=== PATIENT | male | born 1950 | race Caucasian/White ===

== ENCOUNTER → 2018-09-07 | Outpatient (CLI) | payer MEDICARE ==
--- NOTE | 2018-09-07 18:02 | US ---
EXAMINATION TYPE: US venous doppler duplex LE LT DATE OF EXAM: 09/07/2018 5:29 PM COMPARISON: NONE CLINICAL HISTORY: M25.562 PAIN IN LT KNEE,I10 HTN. Pain and swelling in left knee, redness, no injury , no h/o dvt SIDE PERFORMED: left TECHNIQUE: The lower extremity deep venous system is examined utilizing real time linear array sonog valorie with graded compression, doppler sonography and color-flow sonography. VESSELS IMAGED: External Iliac Vein (EIV) Common Femoral Vein Deep Femoral Vein Greater Saphenous Vein * Femoral Vein Popliteal Vein Small Saphenous Vein * Proximal Calf Veins (* superficial vessels) Left Leg: Appears negative for DVT 3.0cm cystic cluster seen just medial to popiteal vessels and does not have typical Weston Cyst appe arance, unknown etiology office closed for tech impression and no additional contact number given on order. IMPRESSION: No evidence of deep venous thrombosis. Complex septated popliteal cyst noted.
== END | disposition home or self-care (01) ==
LOC: RADUSWWP 17:05
PROVIDERS: ATTEND Orthopaedic Surgery
DX: M85.662 Other cyst of bone, left lower leg (principal); E78.5 Hyperlipidemia, unspecified; I80.9 Phlebitis and thrombophlebitis of unspecified site

== ENCOUNTER 2018-09-10 13:12 | Emergency (ER) | payer MEDICARE, OTHER ==
--- NOTE | 2018-09-10 14:57 | ED ---
Extremity Problem HPI - General Chief complaint: Extremity Problem,Nontraumatic Stated complaint: Infection in Knee Time Seen by Provider: 09/10/18 14:28 Source: patient Mode of arrival: ambulatory Limitations: no limitations - History of Present Illness Initial comments: Patient is a 68-year-old male presenting to emergency Department with right knee erythema and swelling. Patient reports 3 days ago he developed erythema and swelling on the left knee and lower leg edema so he was examined by Dr. Chaudhari who placed him on a 10 day course of Keflex which has showed improvement. Patient reports left knee has improved but now the right knee has developed the same symptoms. Patient reports mild tenderness at rest that is is exacerbated with palpation or ambulation. Patient denies bilateral calf tenderness Or skin discoloration. Patient denies shortness of breath and chest tightness or chest pain. Patient denies fever, nausea, vomiting, headache, lightheadedness, dizziness or gait instability. Patient denies urgency frequency or dysuria. - Related Data Home Medications Medication Instructions Recorded Confirmed Allopurinol [Zyloprim] 100 mg PO DAILY 12/24/14 09/10/18 Furosemide [Lasix] 20 mg PO DAILY 12/24/14 09/10/18 Metoprolol Succinate [Toprol XL] 200 mg PO DAILY 12/24/14 09/10/18 Cephalexin [Keflex] 500 mg PO Q6HR 09/10/18 09/10/18 Allergies Allergy/AdvReac Type Severity Reaction Status Date / Time No Known Allergies Allergy Verified 09/10/18 14:40 Review of Systems ROS Statement: Those systems with pertinent positive or pertinent negative responses have been documented in the HPI. ROS Other: All systems not noted in ROS Statement are negative. Past Medical History Past Medical History: Chest Pain / Angina, Hypertension History of Any Multi-Drug Resistant Organisms: None Reported Past Surgical History: No Surgical Hx Reported Past Psychological History: No Psychological Hx Reported Smoking Status: Current every day smoker Past Alcohol Use History: Occasional Past Drug Use History: None Reported General Exam Limitations: no limitations General appearance: alert, in no apparent distress Head exam: Present: atraumatic, normocephalic Eye exam: Present: normal appearance, PERRL, EOMI Pupils: Present: normal accommodation Neck exam: Present: normal inspection Respiratory exam: Present: normal lung sounds bilaterally Cardiovascular Exam: Present: regular rate, normal rhythm, normal heart sounds GI/Abdominal exam: Present: soft. Absent: distended, tenderness, guarding, rebound Left Upper Leg exam: Present: normal inspection, full ROM Knee exam: Present: full ROM. Absent: tenderness, abrasion, laceration, ecchymosis, deformity Lower Leg exam: Present: swelling. Absent: erythema, Homans' sign Ankle exam: Present: normal inspection, full ROM Foot/Toe exam: Present: normal inspection, full ROM Neurovascular tendon exam: Present: no vascular compromise (+2 dorsalis pedis a nd posterior tibialis) Gait: observed and limited by pain Right Upper Leg exam: Present: normal inspection, full ROM Knee exam: Present: tenderness (Mild), swelling (Mild), erythema. Absent: full ROM (Limited due to pain), laceration Course Vital Signs 09/10/18 09/10/18 13:43 15:06 Temperature 98.1 F 98 F Pulse Rate 49 L 58 L Respiratory 16 18 Rate Blood Pressure 157/86 167/84 O2 Sat by Pulse 98 98 Oximetry Medical Decision Making - Medical Decision Making Patient is 68-year-old male presenting to emergency Department for right leg swelling and erythema. ESR, lactic acid, CBC, CMP are unremarkable. Patient will be discharged and advised to follow-up with orthopedics. X-ray of the righ t knee is not showing any acute fracture or dislocations but it shows increased sclerotic lesion involving distal diaphysis of the right femur with possible past several reaction. Patient advised to obtain an MRI. Patient advised to keep the leg elevated and alternate between Tylenol and ibuprofen for pain control. Patient advised to keep an icepack to minimize swelling. Patient advised to return to emergency department if symptoms worsen. Case discussed with physician. - Lab Data Result diagrams: 09/10/18 15:15 09/10/18 15:15 Lab Results 09/10/18 09/10/18 09/10/18 Range/Units 15:15 15:15 15:15 WBC 10.2 (3.8-10.6) k/uL RBC 4.43 (4.30-5.90) m/uL Hgb 14.8 (13.0-17.5) gm/dL Hct 43.3 (39.0-53.0) % MCV 97.9 (80.0-100.0) fL MCH 33.5 (25.0-35.0) pg MCHC 34.2 (31.0-37.0) g/dL RDW 14.1 (11.5-15.5) % Plt Count 210 (150-450) k/uL Neutrophils % 66 % Lymphocytes % 22 % Monocytes % 7 % Eosinophils % 2 % Basophils % 0 % Neutrophils # 6.7 (1.3-7.7) k/uL Lymphocytes # 2.3 (1.0-4.8) k/uL Monocytes # 0.7 (0-1.0) k/uL Eosinophils # 0.2 (0-0.7) k/uL Basophils # 0.0 (0-0.2) k/uL ESR 8 (0-15) mm/hr Sodium 140 (137-145) mmol/L Potassium 4.5 (3.5-5.1) mmol/L Chloride 103 (98-107) mmol/L Carbon Dioxide 28 (22-30) mmol/L Anion Gap 9 mmol/L BUN 10 (9-20) mg/dL Creatinine 0.64 L (0.66-1.25) mg/dL Est GFR (CKD-EPI)AfAm >90 (>60 ml/min/1.73 sqM) Est GFR (CKD-EPI)NonAf >90 (>60 ml/min/1.73 sqM) Glucose 93 (74-99) mg/dL Plasma Lactic Acid Manuel 1.3 (0.7-2.0) mmol/L Calcium 9.8 (8.4-10.2) mg/dL Total Bilirubin 0.8 (0.2-1.3) mg/dL AST 27 (17-59) U/L ALT 19 L (21-72) U/L Alkaline Phosphatase 70 (38-126) U/L Total Protein 7.3 (6.3-8.2) g/dL Albumin 4.5 (3.5-5.0) g/dL Disposition Clinical Impression: Knee pain, right Disposition: HOME SELF-CARE Condition: Stable Instructions (If sedation given, give patient instructions): Knee Pain (ED) Additional Instructions: Please follow with orthopedics. Keep leg elevated, alternate between Tylenol and ibuprofen for pain control, and use ice packs to minimize swelling. Please return to emergency department if symptoms worsen. Is patient prescribed a controlled substance at d/c from ED?: No Referrals: [facility],Clinic [Primary Care Provider] - 1-2 days Time of Disposition: 16:53
--- NOTE | 2018-09-10 15:05 | XR ---
EXAMINATION TYPE: XR knee complete RT DATE OF EXAM: 09/10/2018 COMPARISON: NONE HISTORY: Pain TECHNIQUE: Four views are submitted. FINDINGS: Mild narrowing the medial compartment knee joint. There is vascular calcification. There is to be a s clerotic lesion involving the distal diaphysis of the right femur.. Osseous structures are intact. No acute fracture seen. IMPRESSION: 1. No acute fracture or dislocation. There is increased sclerotic lesion involving the distal diaphy sis of the right femur with possible periosteal reaction. Recommend MRI of the right knee. 2. Arthropathy.
[2018-09-10 15:09] VITALS: BP 167/84
[2018-09-10 15:36] LABS: ALT 19 U/L (21-72); AST 27 U/L (17-59); Albumin 4.5 g/dL (3.5-5.0); Alkaline Phosphatase 70 U/L (38-126); Anion Gap 9 mmol/L; Blood Urea Nitrogen 10 mg/dL (9-20); Calcium 9.8 mg/dL (8.4-10.2); Carbon Dioxide 28 mmol/L (22-30); Chloride 103 mmol/L (98-107); Glucose 93 mg/dL (74-99); Potassium 4.5 mmol/L (3.5-5.1); Sodium 140 mmol/L (137-145); Total Bilirubin 0.8 mg/dL (0.2-1.3); Total Protein 7.3 g/dL (6.3-8.2)
[2018-09-10 15:37] LABS: Basophils % (A) 0 %; Eosinophils # (A) 0.2 k/uL (0-0.7); Eosinophils % (A) 2 %; HCT 43.3 % (39.0-53.0); HGB 14.8 gm/dL (13.0-17.5); Lymphocytes # (A) 2.3 k/uL (1.0-4.8); Lymphocytes % (A) 22 %; MCH 33.5 pg (25.0-35.0); MCHC 34.2 g/dL (31.0-37.0); MCV 97.9 fL (80.0-100.0); Mean Platelet Volume 7.7; Monocytes # (A) 0.7 k/uL (0-1.0); Monocytes % (A) 7 %; Neutrophils # (A) 6.7 k/uL (1.3-7.7); Neutrophils % (A) 66 %; Platelet Count 210 k/uL (150-450); RBC 4.43 m/uL (4.30-5.90); RDW 14.1 % (11.5-15.5); WBC 10.2 k/uL (3.8-10.6)
[2018-09-10] MEDS ORDERED: IBUPROFEN 600 MG TAB PO STA (15:57)
[2018-09-10 16:38] LABS: Erythrocyte Sedimentation Rate 8 mm/hr (0-15)
[2018-09-10 16:59] VITALS: PULSE 78; RESP 16; TEMP 98.7
== END 2018-09-10 17:01 | disposition home or self-care (01) ==
LOC: EC 13:12
DX: M25.561 Pain in right knee (principal); M89.9 Disorder of bone, unspecified; I10 Essential (primary) hypertension; F17.200 Nicotine dependence, unspecified, uncomplicated; Z79.899 Other long term (current) drug therapy
CPT/HCPCS: 36415; 80053; 83605; 85025; 85652; 99283

== ENCOUNTER 2019-12-30 15:57 | Emergency (ER) | payer MEDICARE, OTHER ==
[2019-12-30 16:08] VITALS: TEMP 98.2
[2019-12-30] MEDS ORDERED: METOPROLOL SUCCINATE (ER) 100 MG TAB.ER.24H PO STA (16:58)
--- NOTE | 2019-12-30 17:30 | ED ---
General Adult HPI - General Chief complaint: Recheck/Abnormal Lab/Rx Stated complaint: High BP Source: patient Mode of arrival: ambulatory Limitations: no limitations - History of Present Illness Initial comments: 69 year old male past medical history of hypertension who presents emergency department with reported hypertension. He went into the [facility] today for a regular follow-up appointment and was told that he had high blood pressure. He did not take his medications prior to his office visit. Normally takes metoprolol 200 mg once daily. States that it slipped his mind and he did not take it. Patient denies any headaches or visual changes. No chest pain or shortness of breath. Denies any previous history of cardiac disease. Normally takes his blood pressures at home and states that they were normal. Normally they are slightly elevated in office. Patient feels completely asymptomatic however came to the emergency room as he was instructed by his primary care to come in. He denies any abdominal pain. No recent medication changes. No nausea or vomiting. Denies abdominal pain. There are no other alleviating, precipitating or modifying factors - Related Data Home Medications Medication Instructions Recorded Confirmed Furosemide [Lasix] 20 mg PO DAILY 12/24/14 09/10/18 Metoprolol Succinate [Toprol XL] 200 mg PO DAILY 12/24/14 09/10/18 allopurinoL [Zyloprim] 100 mg PO DAILY 12/24/14 09/10/18 Cephalexin [Keflex] 500 mg PO Q6HR 09/10/18 09/10/18 Allergies Allergy/AdvReac Type Severity Reaction Status Date / Time No Known Allergies Allergy Verified 12/30/19 16:08 Review of Systems ROS Statement: Those systems with pertinent positive or pertinent negative responses have been documented in the HPI. ROS Other: All systems not noted in ROS Statement are negative. Past Medical History Past Medical History: Chest Pain / Angina, Hypertension History of Any Multi-Drug Resistant Organisms: None Reported Past Surgical History: No Surgical Hx Reported Past Psychological History: No Psychological Hx Reported Smoking Status: Current every day smoker Past Alcohol Use History: Occasional Past Drug Use History: None Reported General Exam Limitations: no limitations Course Vital Signs 12/30/19 12/30/19 12/30/19 16:04 16:26 16:28 Temperature 98.2 F Pulse Rate 94 91 Pulse Rate [ 96 Pulse Oximetery ] Respiratory 18 16 Rate Blood Pressure 229/112 202/107 O2 Sat by Pulse 100 96 Oximetry 12/30/19 12/30/19 12/30/19 17:08 17:30 17:43 Temperature Pulse Rate 84 74 66 Pulse Rate [ Pulse Oximetery ] Respiratory 16 16 18 Rate Blood Pressure 187/92 187/95 187/95 O2 Sat by Pulse 96 96 97 Oximetry EKG Findings - EKG Comments: EKG Findings:: EKG demonstrates a normal sinus rhythm with a ventricular rate of 75. WI interval 140. QRS 82. QTC of 460. No acute ST segment elevations or depressions concerning for ischemic changes Medical Decision Making - Medical Decision Making Upon arrival the patient is placed in room 10. A thorough history and physical exam was performed. Patient does have improvement in his blood pressure to 190 systolic. He was given his home dose of metoprolol. He is observed in the emergency department. A 12-lead EKG was performed. Patient is completely asymptomatic at this time and therefore he will be discharged home. Instructed to take his medications as directed. He should also keep a high blood pressure log and follow up with primary care physician. Patient agreed to this. Return to the emergency room for any new or worsening symptoms. Patient was discharged home in stable condition Disposition Clinical Impression: Asymptomatic hypertension Disposition: HOME SELF-CARE Condition: Stable Instructions (If sedation given, give patient instructions): Hypertension (ED) Additional Instructions: Please take your blood pressure medication as directed. Keep a log at home of your blood pressures. I do recommend that you measure it 3 times per day. Follow-up with your primary care doctor for reevaluation to ensure that your blo od pressure has remained stable and you do not need medication adjustments. Return to the emergency room for any new or worsening symptoms Is patient prescribed a controlled substance at d/c from ED?: No Referrals: [facility],Clinic [Primary Care Provider] - 1-2 days Time of Disposition: 17:29
[2019-12-30 17:31] VITALS: BP 187/95
[2019-12-30 17:44] VITALS: PULSE 66; RESP 18
== END 2019-12-30 17:47 | disposition home or self-care (01) ==
LOC: EC 15:57
DX: I10 Essential (primary) hypertension (principal); I20.9 Angina pectoris, unspecified; F17.200 Nicotine dependence, unspecified, uncomplicated; Z79.899 Other long term (current) drug therapy
CPT/HCPCS: 93005; 99283

== ENCOUNTER 2023-11-30 11:27 | Emergency (ER) | payer OTHER ==
[2023-11-30] MEDS ORDERED: LABETALOL 5 MG/ML VIAL MDV ONE ×2 (13:21→13:24)
--- NOTE | 2023-12-20 08:39 | CT ---
Patient: Nitish Palomo Ordering Physician: Unknown, Unknown ID: [id number] Phone, Pager: Phone: N/A Pager: N/A : 1950 Age/Gender: 73Y, M Primary Location: N/A Procedure: CT brain w/o Study D ate: 11/30/2023 12:12:00 PM EXAMINATION TYPE: CT brain wo con DATE OF EXAM: 11/30/2023 COMPARISON: None INDICATION: Memory loss DLP: 1127.4 mGycm, Automated exposure control for dose reduction was used. CONTRAST: None CT of the brain is performed utilizing 3 mm thick sections through the posterior fossa and 3 mm thick sections through the remaining calvarium. Study is performed within 24 hours of arrival to the hosp ital. No abnormal hyperdensity is present to suggest an acute intracranial hemorrhage. No mass lesion is evident. No acute infarcts are evident. Periventricular white matter hypodensity is present, likely on the bas is of chronic white matter ischemic changes. This may be slightly greater in the parietal-occipital s ubcortical regions. Ventricles and sulci are appropriate for the patient age. Paranasal sinuses and mastoid air cells within the [id number] are clear. IMPRESSION: 1. No acute intracranial process. Follow up MRI can be performed as clinically indicated. 2. Chronic appearing periventricular white matter ischemic-type changes
== END 2023-11-30 13:32 | disposition home or self-care (01) ==
LOC: EC 11:27
DX: F03.90 Unspecified dementia, unspecified severity, without behavioral disturbance, psychotic disturbance, mood disturbance, and anxiety (principal)
CPT/HCPCS: 70450; 96374; 99283

== ENCOUNTER 2023-12-01 13:02 | Emergency (ER) | payer OTHER, MEDICARE ==
[2023-12-01] MEDS ORDERED: hydrALAZINE HCL 20 MG/ML 1 ML VIAL ONE ×2 (14:29→16:54)
[2023-12-01] MEDS ORDERED: SODIUM CHLORIDE 0.9% 1,000 ML BAG ONE (14:32)
== END 2023-12-01 18:13 | disposition home or self-care (01) ==
LOC: EC 13:02
DX: I10 Essential (primary) hypertension (principal)
CPT/HCPCS: 93005; 99283

== ENCOUNTER 2024-04-25 10:57 | Emergency (ER) | payer MEDICARE, OTHER ==
[2024-04-25] MEDS: hydrALAZINE HCL 20 MG/ML 1 ML VIAL IVP STA ×2 (12:30→14:15)
[2024-04-25 12:44] LABS: Basophils % (A) 0 %; Eosinophils # (A) 0.1 k/uL (0-0.7); Eosinophils % (A) 1 %; HCT 38.8 % (39.0-53.0); HGB 13.5 gm/dL (13.0-17.5); Lymphocytes # (A) 1.5 k/uL (1.0-4.8); Lymphocytes % (A) 25 %; MCH 36.3 pg (25.0-35.0); MCHC 34.8 g/dL (31.0-37.0); MCV 104.4 fL (80.0-100.0); Macrocytosis Slight; Mean Platelet Volume 8.5; Monocytes # (A) 0.4 k/uL (0-1.0); Monocytes % (A) 6 %; Neutrophils % (A) 66 %; Platelet Count 143 k/uL (150-450); RBC 3.71 m/uL (4.30-5.90); RDW 13.3 % (11.5-15.5)
[2024-04-25 12:52] LABS: ALT 15 U/L (4-49); AST 29 U/L (17-59); African American GFR (CKD) >90 (>60 ml/min/1.73 sqM); Albumin 4.2 g/dL (3.5-5.0); Alkaline Phosphatase 65 U/L (38-126); Anion Gap 7 mmol/L; Blood Urea Nitrogen 9 mg/dL (9-20); Calcium 9.2 mg/dL (8.4-10.2); Carbon Dioxide 30 mmol/L (22-30); Chloride 102 mmol/L (98-107); Glucose 82 mg/dL (74-99); Non-African American GFR(CKD) >90 (>60 ml/min/1.73 sqM); Potassium 4.2 mmol/L (3.5-5.1); Sodium 139 mmol/L (137-145); Total Bilirubin 0.8 mg/dL (0.2-1.3); Total Protein 6.6 g/dL (6.3-8.2)
--- NOTE | 2024-04-25 13:50 | ED ---
Recheck HPI - General Chief Complaint: Recheck/Abnormal Lab/Rx Stated Complaint: bp read high at dr office Time Seen by Provider: 04/25/24 11:11 Source: patient, family, RN notes reviewed Mode of arrival: ambulatory Limitations: no limitations - History of Present Illness Initial Comments: This is a 73-year-old male with history of hypertension and chest pain presenting with hypertension x 1 day. Patient states he was sent to ER by urologist following discovery of high blood pressure. Patient states he takes lisinopril, metoprolol and Lasix for blood pressure. Denies chest pain, dyspnea, headache, vision changes or other symptoms. Onset/Timin -: days(s) Symptoms Since Prior Visit: no new symptoms Associated Symptoms: none - Related Data Home Medications Medication Instructions Recorded Confirmed Furosemide [Lasix] 20 mg PO DAILY 12/24/14 09/10/18 Metoprolol Succinate [Toprol XL] 200 mg PO DAILY 12/24/14 09/10/18 allopurinoL [Zyloprim] 100 mg PO DAILY 12/24/14 09/10/18 Cephalexin [Keflex] 500 mg PO Q6HR 09/10/18 09/10/18 Allergies Allergy/AdvReac Type Severity Reaction Status Date / Time No Known Allergies Allergy Verified 04/25/24 11:11 Review of Systems ROS Statement: Those systems with pertinent positive or pertinent negative responses have been documented in the HPI. ROS Other: All systems not noted in ROS Statement are negative. Past Medical History Past Medical History: Chest Pain / Angina, Hypertension History of Any Multi-Drug Resistant Organisms: None Reported Past Surgical History: No Surgical Hx Reported Past Psychological History: No Psychological Hx Reported Smoking Status: Light tobacco smoker Past Alcohol Use History: Rare Past Drug Use History: None Reported General Exam Limitations: no limitations General appearance: alert, in no apparent distress Head exam: Present: atraumatic, normocephalic, normal inspection Eye exam: Present: normal appearance, PERRL, EOMI. Absent: scleral icterus, conjunctival injection, periorbital swelling ENT exam: Present: normal exam, mucous membranes moist Neck exam: Present: normal inspection. Absent: tenderness, meningismus, lymphadenopathy Respiratory exam: Present: normal lung sounds bilaterally. Absent: respiratory distress, wheezes, rales, rhonchi, stridor Cardiovascular Exam: Present: regular rate, normal rhythm, normal heart sounds. Absent: systolic murmur, diastolic murmur, rubs, gallop, clicks GI/Abdominal exam: Present: soft, normal bowel sounds. Absent: distended, te nderness, guarding, rebound, rigid Extremities exam: Present: normal inspection, full ROM, normal capillary refill. Absent: tenderness, pedal edema, joint swelling, calf tenderness Back exam: Present: normal inspection Neurological exam: Present: alert, oriented X3, CN II-XII intact Psychiatric exam: Present: normal affect, normal mood Skin exam: Present: warm, dry, intact, normal color. Absent: rash Course Vital Signs 04/25/24 04/25/24 04/25/24 11:08 12:10 13:00 Temperature 98.0 F 98.3 F Pulse Rate 76 58 L Pulse Rate [ 66 Allocation Analyst ] Respiratory 18 18 Rate Blood Pressure 210/116 217/95 O2 Sat by Pulse 99 98 Oximetry 04/25/24 04/25/24 04/25/24 13:16 14:00 14:21 Temperature 98.4 F Pulse Rate 72 61 Pulse Rate [ Allocation Analyst ] Respiratory 21 16 Rate Blood Pressure 183/81 161/75 161/75 O2 Sat by Pulse 99 96 Oximetry Medical Decision Making - Medical Decision Making Was pt. sent in by a medical professional or institution (Dr. PA, WINDOWS MOBILE DEVELOPER, urgent care, hospital, or shelter...) When possible be specific @ -Urologist Did you speak to anyone other than the patient for history (EMS, parent, family, police, friend...)? What history was obtained from this source @ -No Did you review nursing and triage notes (agree or disagree)? Why? @ -I reviewed and agree with nursing and triage notes Were old charts reviewed (outside hosp., previous admission, EMS record, old EK G, old radiological studies, urgent care reports/EKG's, shelter records)? Report findings @ -No old charts were reviewed Differential Diagnosis (chest pain, altered mental status, abdominal pain women, abdominal pain men, vaginal bleeding, weakness, fever, dyspnea, syncope, headache, dizziness, GI bleed, back pain, seizure, CVA, palpatations, mental health, musculoskeletal)? @ -Hypertensive urgency, hypertensive emergency EKG interpreted by me (3pts min.). @ -Not done X-rays interpreted by me (1pt min.). @ -None done CT interpreted by me (1pt min.). @ -None done U/S interpreted by me (1pt. min.). @ -None done What testing was considered but not performed or refused? (CT, X-rays, U/S, labs)? Why? @ -None What meds were considered but not given or refused? Why? @ -None Did you discuss the management of the patient with other professionals (professionals i.e. Dr., PA, WINDOWS MOBILE DEVELOPER, lab, RT, psych nurse, child welfare social worker, mandolin repair person, teacher, chief financial officer, ed case manager)? Give summary @ -No Was smoking cessation discussed for >3mins.? @ -No Was critical care preformed (if so, how long)? @ -No Were there social determinants of health that impacted care today? How? (Homelessness, low income, unemployed, alcoholism, drug addiction, transportation, low edu. Level, literacy, decrease access to med. care, usp, rehab)? @ -No Was there de-escalation of care discussed even if they declined (Discuss DNR or withdrawal of care, Hospice)? DNR status @ -No What co-morbidities impacted this encounter? (DM, HTN, Smoking, COPD, CAD, Cancer, CVA, ARF, Chemo, Hep., AIDS, mental health diagnosis, sleep apnea, morbid obesity)? @ -Hypertension Was patient admitted / discharged? Hospital course, mention meds given and route, prescriptions, significant lab abnormalities, going to OR and other pertinent info. @ -Lab work shows RBC 3.71 and thrombocytopenia of 143, otherwise unremarkable. Patient provided IV hydralazine until blood pressure was within WNL, last being 161/75 mmHg. Advised patient to double lisinopril dose and keep a daily journal of blood pressure. Advised follow-up with PCP for further change in blood pressure medication to maintain better control. Discussed patient with Dr. Zepeda. Undiagnosed new problem with uncertain prognosis? @ -No Drug Therapy requiring intensive monitoring for toxicity (Heparin, Nitro, Insulin, Cardizem)? @ -No Were any procedures done? @ -No Diagnosis/symptom? @ -Hypertensive urgency Acute, or Chronic, or Acute on Chronic? @ -Acute Uncomplicated (without systemic symptoms) or Complicated (systemic symptoms)? @ -Uncomplicated Side effects of treatment? @ -No Exacerbation, Progression, or Severe Exacerbation? @ -No Poses a threat to life or bodily function? How? (Chest pain, [place], [place], pneumonia, PE, COPD, DKA, ARF, appy, cholecystitis, CVA, Diverticulitis, Homicidal, Suicidal, threat to staff... and all critical care pts) @ -No - Lab Data Result diagrams: 04/25/24 12:37 04/25/24 12:37 Lab Results 04/25/24 04/25/24 Range/Units 12:37 12:37 WBC 6.0 (3.8-10.6) k/uL RBC 3.71 L (4.30-5.90) m/uL Hgb 13.5 (13.0-17.5) gm/dL Hct 38.8 L (39.0-53.0) % MCV 104.4 H (80.0-100.0) fL MCH 36.3 H (25.0-35.0) pg MCHC 34.8 (31.0-37.0) g/dL RDW 13.3 (11.5-15.5) % Plt Count 143 L (150-450) k/uL MPV 8.5 Neutrophils % 66 % Lymphocytes % 25 % Monocytes % 6 % Eosinophils % 1 % Basophils % 0 % Neutrophils # 4.0 (1.3-7.7) k/uL Lymphocytes # 1.5 (1.0-4.8) k/uL Monocytes # 0.4 (0-1.0) k/uL Eosinophils # 0.1 (0-0.7) k/uL Basophils # 0.0 (0-0.2) k/uL Macrocytosis Slight Sodium 139 (137-145) mmol/L Potassium 4.2 (3.5-5.1) mmol/L Chloride 102 (98-107) mmol/L Carbon Dioxide 30 (22-30) mmol/L Anion Gap 7 mmol/L BUN 9 (9-20) mg/dL Creatinine 0.52 L (0.66-1.25) mg/dL Est GFR (CKD-EPI)AfAm >90 (>60 ml/min/1.73 sqM) Est GFR (CKD-EPI)NonAf >90 (>60 ml/min/1.73 sqM) Glucose 82 (74-99) mg/dL Calcium 9.2 (8.4-10.2) mg/dL Total Bilirubin 0.8 (0.2-1.3) mg/dL AST 29 (17-59) U/L ALT 15 (4-49) U/L Alkaline Phosphatase 65 (38-126) U/L Total Protein 6.6 (6.3-8.2) g/dL Albumin 4.2 (3.5-5.0) g/dL Disposition Clinical Impression: Hypertensive urgency Disposition: HOME SELF-CARE Condition: Good Instructions (If sedation given, give patient instructions): Chronic Hypertension (ED), Mediterranean Diet (DC) Additional Instructions: Recommended to keep blood pressure journal and record blood pressure prior to every meal and before bed to bring to primary care. Is patient prescribed a controlled substance at d/c from ED?: No Referrals: [facility],Clinic [Primary Care Provider] - 1-2 days Time of Disposition: 13:50
[2024-04-25 14:15] VITALS: BP 161/75
[2024-04-25 14:21] VITALS: PULSE 61; RESP 16; TEMP 98.4
== END 2024-04-25 14:21 | disposition home or self-care (01) ==
LOC: EC 10:57
DX: I16.0 Hypertensive urgency (principal); F17.200 Nicotine dependence, unspecified, uncomplicated
CPT/HCPCS: 36415; 80053; 85025; 99283; 96374; J0360

== ENCOUNTER 2024-06-27 08:32 | Inpatient (IN) | payer MEDICARE, OTHER ==
--- NOTE | 2024-06-27 08:57 | ED ---
General Adult HPI - General Chief complaint: Altered Mental Status Stated complaint: AMS Time Seen by Provider: 06/27/24 08:36 Source: patient, RN notes reviewed Mode of arrival: EMS Limitations: altered mental status - History of Present Illness Initial comments: Patient is a 73-year-old male presenting to the emergency department with concern for change in mental status. 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 Patient was fired from his job several months ago after showing up frequently at the wrong times. Patient was unaware that his had passed nora y. Patient's reportedly 4 months ago. - Related Data Home Medications Medication Instructions Recorded Confirmed Ascorbic Acid [Vitamin C] 500 mg PO DAILY 05/29/24 06/27/24 Cholecalciferol [Vitamin D3 (25 50 mcg PO BID 05/29/24 06/27/24 Mcg = 1000 Iu)] Losartan [Cozaar] 50 mg PO BID 05/29/24 06/27/24 Metoprolol Succinate (ER) [Toprol 100 mg PO DAILY 05/29/24 06/27/24 Xl] Allergies Allergy/AdvReac Type Severity Reaction Status Date / Time lisinopril Allergy Cough Verified 06/27/24 10:25 Review of Systems ROS Statement: Those systems with pertinent positive or pertinent negative responses have been documented in the HPI. ROS Other: All systems not noted in ROS Statement are negative. Constitutional: Denies: fever Eyes: Denies: eye pain ENT: Denies: ear pain Neurological: Reports: as per HPI. Denies: headache, weakness Past Medical History Past Medical History: Chest Pain / Angina, Hypertension History of Any Multi-Drug Resistant Organisms: None Reported Past Surgical History: No Surgical Hx Reported Past Psychological History: No Psychological Hx Reported Smoking Status: Light tobacco smoker Past Alcohol Use History: Rare Past Drug Use History: None Reported General Exam Limitations: altered mental status General appearance: alert, in no apparent distress Head exam: Present: atraumatic, normocephalic Eye exam: Present: normal appearance, PERRL, EOMI ENT exam: Present: normal oropharynx Neck exam: Present: normal inspection. Absent: tenderness, meningismus Respiratory exam: Present: normal lung sounds bilaterally Cardiovascular Exam: Present: regular rate, normal rhythm GI/Abdominal exam: Present: soft. Absent: tenderness Extremities exam: Present: normal inspection. Absent: pedal edema, calf tenderness Neurological exam: Present: alert, CN II-XII intact. Absent: motor sensory deficit Expanded Neurological exam: Present: protecting the airway Patient oriented to: Present: person, place. Absent: time Speech: Present: fluid speech Cranial nerves: EOM's Intact: Normal Sensory exam: Upper Extremity Light Touch: Normal, Lower Extremity Light Touch: Normal Motor strength exam: RUE: 5, LUE: 5, RLE: 5, LLE: 5 Eye Response: (4) open spontaneously Motor Response: (6) obeys commands Verbal Response: (4) confused conversation Psychiatric exam: Present: normal affect, normal mood Skin exam: Present: normal color Course Vital Signs 06/27/24 06/27/24 06/27/24 08:33 08:54 10:25 Temperature 98.7 F Pulse Rate 97 78 Respiratory 18 16 Rate Blood Pressure 203/127 183/99 172/92 O2 Sat by Pulse 98 99 Oximetry 06/27/24 11:19 Temperature Pulse Rate 90 Respiratory 18 Rate Blood Pressure 174/84 O2 Sat by Pulse 98 Oximetry EKG Findings - EKG Results: EKG: interpreted by ERMD (Sinus arrhythmia. LVH criteria. Nonspecific ST-T.), sinus rhythm, normal axis Medical Decision Making - Medical Decision Making Was pt. sent in by a medical professional or institution (HONORIO Mcmanus, SENIOR USER EXPERIENCE ARCHITECT, urgent care, hospital, or residential...) When possible be specific @ -Patient was sent in by the police department Did you speak to anyone other than the patient for history (EMS, parent, family, police, friend...)? What history was obtained from this source @ -Social workers present helps provide concerns Did you review nursing and triage notes (agree or disagree)? Why? @ -I reviewed and agree with nursing and triage notes Were old charts reviewed (outside hosp., previous admission, EMS record, old EKG, old radiological studies, urgent care reports/EKG's, residential records)? Report findings @ -No old charts were reviewed Differential Diagnosis (chest pain, altered mental status, abdominal pain women, abdominal pain men, vaginal bleeding, weakness, fever, dyspnea, syncope, headache, dizziness, GI bleed, back pain, seizure, CVA, palpatations, mental health, musculoskeletal)? @ -Differential Altered Mental Status: Hypoglycemia, DKA, hypercapnia, ETOH, overdose, CO poisoning, trauma, myxedema coma, HTN encephalopathy, infection, encephalitis, psychosis, intercranial hemorrhage, hepatic encephalopathy, meningitis, CVA, this is not meant to be an all-inclusive list EKG interpreted by me (3pts min.). @ -As above X-rays interpreted by me (1pt min.). @ -Chest x-ray shows no acute process CT interpreted by me (1pt min.). @ -CT scan of the brain does not reveal acute abnormality U/S interpreted by me (1pt. min.). @ -None done What testing was considered but not performed or refused? (CT, X-rays, U/S, labs)? Why? @ -None What meds were considered but not given or refused? Why? @ -None Did you discuss the management of the patient with other professionals (professionals i.e. , PA, SENIOR USER EXPERIENCE ARCHITECT, lab, RT, psych nurse, forensic social worker, billing and insurance coordinator, teacher, community service officer, machine adjuster leader case trim)? Give summary @ -Case was discussed with practitioner Angel who will admit covering Dr. Macias me Was smoking cessation discussed for >3mins.? @ -No Was critical care preformed (if so, how long)? @ -No Were there social determinants of health that impacted care today? How? (Homelessness, low income, unemployed, alcoholism, drug addiction, transportation, low edu. Level, literacy, decrease access to med. care, fci, rehab)? @ -No Was there de-escalation of care discussed even if they declined (Discuss DNR or withdrawal of care, Hospice)? DNR status @ -No What co-morbidities impacted this encounter? (DM, HTN, Smoking, COPD, CAD, Cancer, CVA, ARF, Chemo, Hep., AIDS, mental health diagnosis, sleep apnea, morbid obesity)? @ -None Was patient admitted / discharged? Hospital course, mention meds given and route, prescriptions, significant lab abnormalities, going to OR and other pertinent info. @ -Patient presents with confusion and altered mental status. Patient does have mild elevation of troponin. Patient will be admitted and cardiology and neurology will be placed on consult. Patient reevaluated and updated. A dmission orders written. Undiagnosed new problem with uncertain prognosis? @ -No Drug Therapy requiring intensive monitoring for toxicity (Heparin, Nitro, Insulin, Cardizem)? @ -No Were any procedures done? @ -No Diagnosis/symptom? @ -Altered mental status Acute, or Chronic, or Acute on Chronic? @ -Acute Uncomplicated (without systemic symptoms) or Complicated (systemic symptoms)? @ -Complicated with elevation of troponin Side effects of treatment? @ -No Exacerbation, Progression, or Severe Exacerbation? @ -No Poses a threat to life or bodily function? How? (Chest pain, USA, [place], pneumonia, PE, COPD, DKA, ARF, appy, cholecystitis, CVA, Diverticulitis, Homicidal, Suicidal, threat to staff... and all critical care pts) @ -Threat to cardiac function - Lab Data Result diagrams: 06/27/24 08:55 06/27/24 08:55 Lab Results 06/27/24 06/27/24 06/27/24 Range/Units 08:55 08:55 08:55 WBC 6.8 (3.8-10.6) k/uL RBC 4.04 L (4.30-5.90) m/uL Hgb 14.4 (13.0-17.5) gm/dL Hct 41.4 (39.0-53.0) % MCV 102.4 H (80.0-100.0) fL MCH 35.6 H (25.0-35.0) pg MCHC 34.8 (31.0-37.0) g/dL RDW 12.6 (11.5-15.5) % Plt Count 156 (150-450) k/uL MPV 8.3 Neutrophils % 69 % Lymphocytes % 19 % Monocytes % 9 % Eosinophils % 1 % Basophils % 0 % Neutrophils # 4.7 (1.3-7.7) k/uL Lymphocytes # 1.3 (1.0-4.8) k/uL Monocytes # 0.6 (0-1.0) k/uL Eosinophils # 0.1 (0-0.7) k/uL Basophils # 0.0 (0-0.2) k/uL Macrocytosis Slight PT 10.0 (10.0-12.5) sec INR 0.9 (<1.2) APTT 23.2 (22.0-30.0) sec Sodium 135 L (137-145) mmol/L Potassium 3.8 (3.5-5.1) mmol/L Chloride 97 L (98-107) mmol/L Carbon Dioxide 25 (22-30) mmol/L Anion Gap 13 mmol/L BUN 13 (9-20) mg/dL Creatinine 0.57 L (0.66-1.25) mg/dL Est GFR (CKD-EPI)AfAm >90 (>60 ml/min/1.73 sqM) Est GFR (CKD-EPI)NonAf >90 (>60 ml/min/1.73 sqM) Glucose 93 (74-99) mg/dL POC Glucose (mg/dL) (70-110) mg/dL POC Glu Video Arcade Manager ID Calcium 9.8 (8.4-10.2) mg/dL Total Bilirubin 1.2 (0.2-1.3) mg/dL AST 60 H (17-59) U/L ALT 24 (4-49) U/L Alkaline Phosphatase 63 (38-126) U/L Troponin I (0.000-0.034) ng/mL Total Protein 7.3 (6.3-8.2) g/dL Albumin 4.7 (3.5-5.0) g/dL Urine Color Urine Appearance (Clear) Urine pH (5.0-8.0) Ur Specific [place] (1.001-1.035) Urine Protein (Negative) Urine Glucose (UA) (Negative) Urine Ketones (Negative) Urine Blood (Negative) Urine Nitrite (Negative) Urine Bilirubin (Negative) Urine Urobilinogen (<2.0) mg/dL Ur Leukocyte Esterase (Negative) Urine RBC (0-5) /hpf Urine WBC (0-5) /hpf Urine Mucus (None) /hpf Urine Opiates Screen (NotDetected) Ur Oxycodone Screen (NotDetected) Urine Methadone Screen (NotDetected) Ur Barbiturates Screen (NotDetected) U Tricyclic Antidepress (NotDetected) Ur Phencyclidine Scrn (NotDetected) Ur Amphetamines Screen (NotDetected) U Methamphetamines Scrn (NotDetected) U Benzodiazepines Scrn (NotDetected) Urine Cocaine Screen (NotDetected) U Marijuana (THC) Screen (NotDetected) 03/20/25 03/20/25 03/20/25 Range/Units 08:55 08:58 09:38 WBC (3.8-10.6) k/uL RBC (4.30-5.90) m/uL Hgb (13.0-17.5) gm/dL Hct (39.0-53.0) % MCV (80.0-100.0) fL MCH (25.0-35.0) pg MCHC (31.0-37.0) g/dL RDW (11.5-15.5) % Plt Count (150-450) k/uL MPV Neutrophils % % Lymphocytes % % Monocytes % % Eosinophils % % Basophils % % Neutrophils # (1.3-7.7) k/uL Lymphocytes # (1.0-4.8) k/uL Monocytes # (0-1.0) k/uL Eosinophils # (0-0.7) k/uL Basophils # (0-0.2) k/uL Macrocytosis PT (10.0-12.5) sec INR (<1.2) APTT (22.0-30.0) sec Sodium (137-145) mmol/L Potassium (3.5-5.1) mmol/L Chloride (98-107) mmol/L Carbon Dioxide (22-30) mmol/L Anion Gap mmol/L BUN (9-20) mg/dL Creatinine (0.66-1.25) mg/dL Est GFR (CKD-EPI)AfAm (>60 ml/min/1.73 sqM) Est GFR (CKD-EPI)NonAf (>60 ml/min/1.73 sqM) Glucose (74-99) mg/dL POC Glucose (mg/dL) 100 (70-110) mg/dL POC Glu Video Arcade Manager ID [facility] Calcium (8.4-10.2) mg/dL Total Bilirubin (0.2-1.3) mg/dL AST (17-59) U/L ALT (4-49) U/L Alkaline Phosphatase (38-126) U/L Troponin I 0.100 H* (0.000-0.034) ng/mL Total Protein (6.3-8.2) g/dL Albumin (3.5-5.0) g/dL Urine Color Urine Appearance (Clear) Urine pH (5.0-8.0) Ur Specific [place] (1.001-1.035) Urine Protein (Negative) Urine Glucose (UA) (Negative) Urine Ketones (Negative) Urine Blood (Negative) Urine Nitrite (Negative) Urine Bilirubin (Negative) Urine Urobilinogen (<2.0) mg/dL Ur Leukocyte Esterase (Negative) Urine RBC (0-5) /hpf Urine WBC (0-5) /hpf Urine Mucus (None) /hpf Urine Opiates Screen Not Detected (NotDetected) Ur Oxycodone Screen Not Detected (NotDetected) Urine Methadone Screen Not Detected (NotDetected) Ur Barbiturates Screen Not Detected (NotDetected) U Tricyclic Antidepress Not Detected (NotDetected) Ur Phencyclidine Scrn Not Detected (NotDetected) Ur Amphetamines Screen Not Detected (NotDetected) U Methamphetamines Scrn Not Detected (NotDetected) U Benzodiazepines Scrn Not Detected (NotDetected) Urine Cocaine Screen Not Detected (NotDetected) U Marijuana (THC) Screen Not Detected (NotDetected) 06/27/24 Range/Units 09:38 WBC (3.8-10.6) k/uL RBC (4.30-5.90) m/uL Hgb (13.0-17.5) gm/dL Hct (39.0-53.0) % MCV (80.0-100.0) fL MCH (25.0-35.0) pg MCHC (31.0-37.0) g/dL RDW (11.5-15.5) % Plt Count (150-450) k/uL MPV Neutrophils % % Lymphocytes % % Monocytes % % Eosinophils % % Basophils % % Neutrophils # (1.3-7.7) k/uL Lymphocytes # (1.0-4.8) k/uL Monocytes # (0-1.0) k/uL Eosinophils # (0-0.7) k/uL Basophils # (0-0.2) k/uL Macrocytosis PT (10.0-12.5) sec INR (<1.2) APTT (22.0-30.0) sec Sodium (137-145) mmol/L Potassium (3.5-5.1) mmol/L Chloride (98-107) mmol/L Carbon Dioxide (22-30) mmol/L Anion Gap mmol/L BUN (9-20) mg/dL Creatinine (0.66-1.25) mg/dL Est GFR (CKD-EPI)AfAm (>60 ml/min/1.73 sqM) Est GFR (CKD-EPI)NonAf (>60 ml/min/1.73 sqM) Glucose (74-99) mg/dL POC Glucose (mg/dL) (70-110) mg/dL POC Glu Video Arcade Manager ID Calcium (8.4-10.2) mg/dL Total Bilirubin (0.2-1.3) mg/dL AST (17-59) U/L ALT (4-49) U/L Alkaline Phosphatase (38-126) U/L Troponin I (0.000-0.034) ng/mL Total Protein (6.3-8.2) g/dL Albumin (3.5-5.0) g/dL Urine Color Light Yellow Urine Appearance Clear (Clear) Urine pH 7.5 (5.0-8.0) Ur Specific [place] 1.009 (1.001-1.035) Urine Protein 1+ H (Negative) Urine Glucose (UA) Negative (Negative) Urine Ketones 1+ H (Negative) Urine Blood Trace H (Negative) Urine Nitrite Negative (Negative) Urine Bilirubin Negative (Negative) Urine Urobilinogen <2.0 (<2.0) mg/dL Ur Leukocyte Esterase Negative (Negative) Urine RBC 1 (0-5) /hpf Urine WBC <1 (0-5) /hpf Urine Mucus Rare H (None) /hpf Urine Opiates Screen (NotDetected) Ur Oxycodone Screen (NotDetected) Urine Methadone Screen (NotDetected) Ur Barbiturates Screen (NotDetected) U Tricyclic Antidepress (NotDetected) Ur Phencyclidine Scrn (NotDetected) Ur Amphetamines Screen (NotDetected) U Methamphetamines Scrn (NotDetected) U Benzodiazepines Scrn (NotDetected) Urine Cocaine Screen (NotDetected) U Marijuana (THC) Screen (NotDetected) Disposition Clinical Impression: Altered mental status Disposition: ADMITTED IP TO THIS HOSP Is patient prescribed a controlled substance at d/c from ED?: No Referrals: Romeo Maldonado DO [Primary Care Provider] - 1-2 days Time of Disposition: 11:50
[2024-06-27 08:59] LABS: Glucose,Whole Blood 100 mg/dL (70-110)
[2024-06-27 09:04] LABS: Basophils % (A) 0 %; Eosinophils # (A) 0.1 k/uL (0-0.7); Eosinophils % (A) 1 %; HCT 41.4 % (39.0-53.0); HGB 14.4 gm/dL (13.0-17.5); Lymphocytes # (A) 1.3 k/uL (1.0-4.8); Lymphocytes % (A) 19 %; MCH 35.6 pg (25.0-35.0); MCHC 34.8 g/dL (31.0-37.0); MCV 102.4 fL (80.0-100.0); Macrocytosis Slight; Mean Platelet Volume 8.3; Monocytes # (A) 0.6 k/uL (0-1.0); Monocytes % (A) 9 %; Neutrophils # (A) 4.7 k/uL (1.3-7.7); Neutrophils % (A) 69 %; Platelet Count 156 k/uL (150-450); RBC 4.04 m/uL (4.30-5.90); RDW 12.6 % (11.5-15.5); WBC 6.8 k/uL (3.8-10.6)
[2024-06-27 09:11] LABS: INR 0.9 (<1.2); Partial Thromboplastin Time 23.2 sec (22.0-30.0)
[2024-06-27 09:14] LABS: ALT 24 U/L (4-49); AST 60 U/L (17-59); African American GFR (CKD) >90 (>60 ml/min/1.73 sqM); Albumin 4.7 g/dL (3.5-5.0); Alkaline Phosphatase 63 U/L (38-126); Anion Gap 13 mmol/L; Blood Urea Nitrogen 13 mg/dL (9-20); Calcium 9.8 mg/dL (8.4-10.2); Carbon Dioxide 25 mmol/L (22-30); Chloride 97 mmol/L (98-107); Glucose 93 mg/dL (74-99); Non-African American GFR(CKD) >90 (>60 ml/min/1.73 sqM); Potassium 3.8 mmol/L (3.5-5.1); Sodium 135 mmol/L (137-145); Total Bilirubin 1.2 mg/dL (0.2-1.3); Total Protein 7.3 g/dL (6.3-8.2)
--- NOTE | 2024-06-27 09:34 | XR ---
EXAMINATION TYPE: XR chest 2V DATE OF EXAM: 06/27/2024 9:24 AM COMPARISON: None. CLINICAL INDICATION: Male, 73 years old with history of altered mental status: Shortness of breath TECHNIQUE: XR chest 2V views of the chest are obtained. FINDINGS: Scattered senescent parenchymal changes noted. Hyperinflation compatible with COPD. No evidence for infiltrate. No evidence for atelectasis. Heart size is stable. Mediastinal structures are stable and grossly unremarkable. No evidence for hilar prominence. Degenerative changes dorsal spine. IMPRESSION: 1. No evidence for acute pulmonary disease. [facility], , 06/27/2024 9:31 AM
[2024-06-27 09:57] LABS: Appearance,Urine Clear (Clear); Bilirubin,Urine Negative (Negative); Blood,Urine Trace (Negative); Color,Urine Light Yellow; Glucose,Urine (UA) Negative (Negative); Ketones,Urine 1+ (Negative); Leukocyte Esterase,Urine Negative (Negative); Mucus,Urine Rare /hpf; Nitrite,Urine Negative (Negative); PH, Urine 7.5 (5.0-8.0); Protein,Urine 1+ (Negative); RBC,Urine 1 /hpf (0-5); Specific Gravity,Urine 1.009 (1.001-1.035); Urobilinogen,Urine <2.0 mg/dL (<2.0); WBC,Urine <1 /hpf (0-5)
[2024-06-27 10:02] LABS: Amphetamine Screen,Urine Not Detected (NotDetected); Barbiturate Screen,Urine Not Detected (NotDetected); Benzodiazepines Screen,Urine Not Detected (NotDetected); Cocaine Screen,Urine Not Detected (NotDetected); Methadone Screen, Urine Not Detected (NotDetected); Opiate Screen,Urine Not Detected (NotDetected); Oxycodone Screen, Urine Not Detected (NotDetected); Phencyclidine Screen,Urine Not Detected (NotDetected); Tricyclic Antidepressant,Urine Not Detected (NotDetected); Urn Cannabinoid Scrn Not Detected (NotDetected)
--- NOTE | 2024-06-27 10:06 | CT ---
EXAMINATION TYPE: CT brain wo con DATE OF EXAM: 06/27/2024 9:50 AM COMPARISON: 05/29/2024. CLINICAL INDICATION: Male, 73 years old with history of Altered mental status, AMS TECHNIQUE: Brain: Axial CT images of the brain were obtained with coronal and sagittal reformats created and rev iewed. Contrast used: None. Oral contrast used: None. CT DLP: 1171.4 mGycm, Automated exposure control for dose reduction was used. FINDINGS: Brain: Extra-axial spaces: No abnormal extra-axial fluid collections. Ventricular system: Dilatation in proportion to cerebral atrophy. Cerebral parenchyma: No acute intraparenchymal hemorrhage or mass effect. The diallo-white junction is well differentiated. Cerebellum: Unremarkable. Mass effect: No evidence of midline shift. Intracranial vasculature: unremarkable Soft tissues: Normal. Calvarium/osseous structures: No depressed skull fracture. Paranasal sinuses and mastoid air cells: Mild scattered paranasal sinus disease. Visualized orbits: Orbital contents are intact. IMPRESSION: 1. No acute intracranial process. 2. Nonspecific white matter changes, likely secondary to chronic small vessel ischemic disease. [facility], , 06/27/2024 10:03 AM
[2024-06-27] MEDS ORDERED: NALOXONE 0.4 MG/ML 1 ML VIAL IV PRN (11:52)
[2024-06-27] MEDS: ASPIRIN 325 MG TAB PO SCH (12:04)
[2024-06-27] MEDS: LOSARTAN 50 MG TAB PO SCH (12:56)
[2024-06-27] MEDS: METOPROLOL SUCCINATE (ER) 100 MG TAB.ER.24H PO SCH (12:56)
[2024-06-27] MEDS: CHOLECALCIFEROL 25 MCG (1000 IU) TABLET PO SCH (12:58)
[2024-06-27] MEDS ORDERED: LORazepam 1 MG TAB PO PRN ×2 (14:31)
[2024-06-27] MEDS ORDERED: LORazepam 0.5 MG TAB PO PRN (14:31)
--- NOTE | 2024-06-27 14:51 | P.HPIM ---
History of Present Illness H&P Date: 06/27/24 Patient is a poor historian. Majority of information obtained from chart review. 73 year old M with PMH HTN presents to the ED for altered mental status. 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 Apparently he was fired from his job several months ago after showing up frequently at the wrong times. Apparently his 4 months ago which he is not aware of. He reports drinking 2 beers, 4 times a week for an unknown amount of time. He denies any active complaints. Reports feeling well. He denies any headache, lower extremity edema, nausea or vomiting, fever or chills, cough, chest pain, dizziness, shortness of breath, palpitations, changes in urination or bowel habits. In the ED he underwent extensive evaluation. BP 203/127, HR 97, T 98.7F, RR 18, 98% on RA. CBC, Coag panel, CMP significant for RBC 4.04, MCV 102.4, Na 135, Cl 97, Cr 0.57, AST 60. Trop 0.1, 0.102. UA neg LE or nitrite. UDS neg. CT brain neg acute process. CXR neg. EKG sinus arrhythmia, nonspecific ST T wave changes. General: non toxic, no distress, disheveled Derm: warm, dry Head: atraumatic, normocephalic, symmetric Mouth: no lip lesion, mucus membranes moist Cardiovascular: S1S2 reg, no murmur Lungs: Decreased BS bilaterally, no rales , no accessory muscle use Ext: no gross muscle atrophy, no edema, no contractures Neuro: no focal neuro deficits Psych: Alert and oriented. Based on my assessment of this patient, this patient meets a high complexity level of care. Altered mental status: Unknown etiology. History of EtOH use. CT brain neg. UDS neg. MRI brain ordered. B12, Folate, TSH, Ammonia ordered. Seizure and Fall precautions. Start Thiamine 100 mg PO QD. Neurology and Psychiatry consulted. Hypertensive urgency: Most recent BP 123/68. Restart Losartan 50 mg PO BID, Metoprolol 100 mg PO QD. Troponin elevation: Unknown etiology. Trend Trop/EKG to rule out ACS. Echo ordered. Telemetry monitoring. Cardiology consulted. Alcohol abuse: CIWA protocol with Ativan PRN per protocol. Macrocytosis: Obtain B12, Folate. CODE STATUS: FULL CODE. DVT Prophylaxis: SCD GI Prophylaxis: Designated medical POA if patient is not able to make medical decisions for themselves: Son I have reviewed the following workday consultant notes: ED note. I have reviewed the results of the following tests: As above. I have ordered the following tests: As above. I have discussed the care of this patient with the following independent historian: I have independently interpreted the following test below: EKG. I have discussed the management of this patient with the following physician: Past Medical History Past Medical History: Chest Pain / Angina, Hypertension History of Any Multi-Drug Resistant Organisms: None Reported Past Surgical History: No Surgical Hx Reported Past Psychological History: No Psychological Hx Reported Smoking Status: Light tobacco smoker Past Alcohol Use History: Rare Past Drug Use History: None Reported Medications and Allergies Home Medications Medication Instructions Recorded Confirmed Type Ascorbic Acid [Vitamin C] 500 mg PO DAILY 05/29/24 06/27/24 History Cholecalciferol [Vitamin D3 (25 50 mcg PO BID 05/29/24 06/27/24 History Mcg = 1000 Iu)] Losartan [Cozaar] 50 mg PO BID 05/29/24 06/27/24 History Metoprolol Succinate (ER) [Toprol 100 mg PO DAILY 05/29/24 06/27/24 History Xl] Allergies Allergy/AdvReac Type Severity Reaction Status Date / Time lisinopril Allergy Cough Verified 06/27/24 10:25 Physical Exam Vitals: Vital Signs Temp Pulse Resp BP Pulse Ox 06/27/24 14:04 71 18 123/68 98 06/27/24 13:56 72 18 158/110 06/27/24 13:16 160 H 06/27/24 11:19 90 18 174/84 98 06/27/24 10:25 78 16 172/92 99 06/27/24 08:54 183/99 06/27/24 08:33 98.7 F 97 18 203/127 98 Intake and Output 06/26/24 06/27/24 06/27/24 22:59 06:59 14:59 Other: Weight 71.214 kg Results CBC & Chem 7: 06/27/24 08:55 06/27/24 08:55 Labs: Abnormal Lab Results - Last 24 Hours (Table) 06/27/24 06/27/24 06/27/24 Range/Units 08:55 08:55 08:55 RBC 4.04 L (4.30-5.90) m/uL MCV 102.4 H (80.0-100.0) fL MCH 35.6 H (25.0-35.0) pg Sodium 135 L (137-145) mmol/L Chloride 97 L (98-107) mmol/L Creatinine 0.57 L (0.66-1.25) mg/dL AST 60 H (17-59) U/L Troponin I 0.100 H* (0.000-0.034) ng/mL Urine Protein (Negative) Urine Ketones (Negative) Urine Blood (Negative) Urine Mucus (None) /hpf 06/27/24 06/27/24 Range/Units 09:38 12:03 RBC (4.30-5.90) m/uL MCV (80.0-100.0) fL MCH (25.0-35.0) pg Sodium (137-145) mmol/L Chloride (98-107) mmol/L Creatinine (0.66-1.25) mg/dL AST (17-59) U/L Troponin I 0.102 H* (0.000-0.034) ng/mL Urine Protein 1+ H (Negative) Urine Ketones 1+ H (Negative) Urine Blood Trace H (Negative) Urine Mucus Rare H (None) /hpf
[2024-06-27] MEDS: LORazepam 1 MG TAB PO PRN (20:46)
[2024-06-28 07:26] LABS: Basophils % (A) 0 %; Eosinophils # (A) 0.1 k/uL (0-0.7); Eosinophils % (A) 1 %; HCT 42.1 % (39.0-53.0); HGB 14.3 gm/dL (13.0-17.5); Lymphocytes # (A) 1.7 k/uL (1.0-4.8); Lymphocytes % (A) 27 %; MCH 35.4 pg (25.0-35.0); MCV 104.1 fL (80.0-100.0); Macrocytosis Slight; Mean Platelet Volume 8.4; Monocytes # (A) 0.5 k/uL (0-1.0); Monocytes % (A) 8 %; Neutrophils % (A) 63 %; Platelet Count 161 k/uL (150-450); RBC 4.05 m/uL (4.30-5.90); RDW 12.5 % (11.5-15.5); WBC 6.3 k/uL (3.8-10.6)
[2024-06-28 07:54] LABS: ALT 22 U/L (4-49); AST 54 U/L (17-59); African American GFR (CKD) >90 (>60 ml/min/1.73 sqM); Albumin 3.8 g/dL (3.5-5.0); Alkaline Phosphatase 55 U/L (38-126); Anion Gap 6 mmol/L; Blood Urea Nitrogen 15 mg/dL (9-20); Calcium 9.1 mg/dL (8.4-10.2); Carbon Dioxide 32 mmol/L (22-30); Chloride 97 mmol/L (98-107); Glucose 89 mg/dL (74-99); Non-African American GFR(CKD) >90 (>60 ml/min/1.73 sqM); Potassium 3.3 mmol/L (3.5-5.1); Sodium 135 mmol/L (137-145); Total Bilirubin 1.2 mg/dL (0.2-1.3); Total Protein 6.2 g/dL (6.3-8.2)
[2024-06-28] MEDS: ASPIRIN 81 MG PO SCH (08:28)
[2024-06-28] MEDS: MULTIVITAMINS, THERA 1 EACH TAB PO SCH (08:29)
[2024-06-28] MEDS: FOLIC ACID 1 MG TAB PO SCH (08:29)
[2024-06-28] MEDS: THIAMINE 100 MG TAB PO SCH (08:29)
[2024-06-28] MEDS: VALSARTAN 160 MG TAB PO SCH (11:02)
--- NOTE | 2024-06-28 12:30 | P.CRDCN ---
History of Present Illness History of present illness: HISTORY OF PRESENT ILLNESS: This is a 73-year-old male with a past medical history significant for hypertension and alcohol abuse. Patient does not follow with a hat braider. We have been asked to see the patient in consultation for elevated troponins. Patient examined at the bedside in the ER. The patient is unsure why he was brought to the hospital. 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 However, he is not emplo yed there. Patient denies chest pain or pressure. Denies SOB. BP on admission 203/127. BP remains elevated in the 160s. DIAGNOSTICS: - EKG reveals sinus mechanism with nonspecific ST-T wave changes - Chest xray negative for acute process - Laboratory data: Troponin 0.100. 0.102. 0.104 - Current home cardiac medications include Losartan 25mg daily and metoprolol succinate 100mg daily - No previous echo, stress echo, or cardiac cath available in EMR for review REVIEW OF SYSTEMS: At the time of my exam: CONSTITUTIONAL: Denies fever or chills. HEENT: Denies blurred vision, vision changes, or eye pain. Denies hemoptysis CARDIOVASCULAR: Denies chest pain. Denies orthopnea. Denies PND. Denies p alpitations RESPIRATORY: Denies shortness of breath. GASTROINTESTINAL: Denies abdominal pain. Denies nausea or vomiting. HEMATOLOGIC: Denies bleeding disorders. GENITOURINARY: Denies any blood in urine. SKIN: Denies pruitis. Denies rash. PHYSICAL EXAM: VITAL SIGNS: Reviewed. GENERAL: Well-developed in no acute distress. HEENT: Head is normocephalic. Pupils are equal, round. Sclerae anicteric. Mucous membranes of the mouth are moist. Neck supple. No JVD or thyromegaly LUNGS: Respirations even and unlabored. Lungs essentially clear to auscultation bilaterally. HEART: Regular rate and rhythm. S1 and S2 heard. ABDOMEN: Soft. Nondistended. Nontender. EXTREMITIES: Normal range of motion. No clubbing or cyanosis. Peripheral pulses intact. No lower extremity edema NEUROLOGIC: Awake and alert. ASSESSMENT: Altered mental status Hypertensive urgency Elevated troponins, flat, likely secondary to uncontrolled hypertension History of hypertension History of alcohol abuse PLAN: Obtain 2D echo to assess cardiac structure and function Check hemoglobin A1c and lipid panel Discontinue losartan. Begin valsartan 160 mg daily for optimal blood pressure control Add atorvastatin 81 mg at night Continue to monitor blood pressure Further recommendations pending patient course Nurse practitioner note has been reviewed by physician. Signing provider agrees with the documented findings, assessment, and plan of care documented by ROCKET ENGINE MECHANIC as a scribe. Past Medical History Past Medical History: Chest Pain / Angina, Hypertension History of Any Multi-Drug Resistant Organisms: None Reported Past Surgical History: No Surgical Hx Reported Past Psychological History: No Psychological Hx Reported Smoking Status: Light tobacco smoker Past Alcohol Use History: Rare Past Drug Use History: None Reported Medications and Allergies Home Medications Medication Instructions Recorded Confirmed Type Ascorbic Acid [Vitamin C] 500 mg PO DAILY 05/29/24 06/27/24 History Cholecalciferol [Vitamin D3 (25 50 mcg PO BID 05/29/24 06/27/24 History Mcg = 1000 Iu)] Losartan [Cozaar] 50 mg PO BID 05/29/24 06/27/24 History Metoprolol Succinate (ER) [Toprol 100 mg PO DAILY 05/29/24 06/27/24 History Xl] Allergies Allergy/AdvReac Type Severity Reaction Status Date / Time lisinopril Allergy Cough Verified 06/27/24 10:25 Physical Exam Vitals: Vital Signs Pulse Resp BP Pulse Ox 06/28/24 11:00 60 18 154/97 98 06/28/24 08:25 61 16 178/99 98 06/28/24 06:00 58 L 16 171/100 06/28/24 04:00 59 L 18 172/103 06/28/24 02:00 59 L 16 174/95 98 06/27/24 23:27 62 16 174/104 95 06/27/24 21:00 67 18 174/90 97 06/27/24 19:39 66 16 06/27/24 18:21 67 16 162/93 97 06/27/24 14:04 71 18 123/68 98 06/27/24 13:56 72 18 158/110 06/27/24 13:16 160 H Results 06/28/24 06:59 06/28/24 06:59 Cardiac Enzymes 06/27/24 06/27/24 06/28/24 Range/Units 12:03 14:32 06:59 AST 54 (17-59) U/L Troponin I 0.102 H* 0.104 H* (0.000-0.034) ng/mL CBC 06/28/24 Range/Units 06:59 WBC 6.3 (3.8-10.6) k/uL RBC 4.05 L (4.30-5.90) m/uL Hgb 14.3 (13.0-17.5) gm/dL Hct 42.1 (39.0-53.0) % Plt Count 161 (150-450) k/uL Comprehensive Metabolic Panel 06/28/24 Range/Units 06:59 Sodium 135 L (137-145) mmol/L Potassium 3.3 L (3.5-5.1) mmol/L Chloride 97 L (98-107) mmol/L Carbon Dioxide 32 H (22-30) mmol/L BUN 15 (9-20) mg/dL Creatinine 0.63 L (0.66-1.25) mg/dL Glucose 89 (74-99) mg/dL Calcium 9.1 (8.4-10.2) mg/dL AST 54 (17-59) U/L ALT 22 (4-49) U/L Alkaline Phosphatase 55 (38-126) U/L Total Protein 6.2 L (6.3-8.2) g/dL Albumin 3.8 (3.5-5.0) g/dL Current Medications Generic Name Dose Route Start Last Admin Trade Name Freq PRN Reason Stop Dose Admin Aspirin 81 mg 06/28/24 09:00 06/28/24 08:28 Aspirin 81 Mg PO 81 mg DAILY DEMETRICE Administration Atorvastatin Calcium 40 mg 06/28/24 21:00 Atorvastatin 40 Mg Tab PO HS DEMETRICE Cholecalciferol 50 mcg 06/27/24 13:00 06/28/24 08:29 Cholecalciferol 25 Mcg (1000 Iu) Tablet PO 50 mcg BID DEMETRICE Administration Folic Acid 1 mg 06/28/24 09:00 06/28/24 08:29 Folic Acid 1 Mg Tab PO 1 mg DAILY DEMETRICE Administration Lorazepam 0.5 mg 06/27/24 14:31 Lorazepam 0.5 Mg Tab PO Q4HR PRN Ciwa 4 To 5 Lorazepam 1 mg 06/27/24 14:31 06/27/24 20:46 Lorazepam 1 Mg Tab PO 1 mg Q4HR PRN Administration Ciwa 6 To 7 Lorazepam 2 mg 06/27/24 14:31 Lorazepam 1 Mg Tab PO Q2HR PRN Ciwa 10 or greater Lorazepam 2 mg 06/27/24 14:31 Lorazepam 1 Mg Tab PO Q3HR PRN Ciwa 8 To 9 Metoprolol Succinate 100 mg 06/27/24 13:00 06/28/24 08:29 Metoprolol Succinate (Er) 100 Mg Tab.Er.24h PO 100 mg DAILY DEMETRICE Administration Multivitamins 1 each 06/28/24 09:00 06/28/24 08:29 Multivitamins, Thera 1 Each Tab PO 1 each DAILY DEMETRICE Administration Naloxone HCl 0.2 mg 06/27/24 11:52 Naloxone 0.4 Mg/Ml 1 Ml Vial IV Q2M PRN Opioid Reversal Thiamine HCl 100 mg 06/28/24 09:00 06/28/24 08:29 Thiamine 100 Mg Tab PO 100 mg DAILY DEMETRICE Administration Valsartan 160 mg 06/28/24 09:00 06/28/24 11:02 Valsartan 160 Mg Tab PO 160 mg DAILY DEMETRICE Administration 06/28/24 06:59 06/28/24 06:59
--- NOTE | 2024-06-28 12:55 | MR ---
EXAMINATION TYPE: MR brain wo con DATE OF EXAM: 06/28/2024 12:39 PM COMPARISON: 06/27/2024. CLINICAL INDICATION: Male, 73 years old with history of AMS r/o CVA; PHH, Altered mental status. TECHNIQUE: Multi planar, multi sequence imaging was performed through the brain including: T1, T2, In version recovery, Diffusion weighted imaging. No gadolinium was given. FINDINGS: Mild cerebral atrophy with proportional dilation of ventricular system. Scattered foci of high T2 s ignal intensity are seen within the periventricular white matter. Midline structures show no abnormal ity. Diffusion-weighted imaging shows no evidence of restricted diffusion. The susceptibility weighte d images do not reveal any evidence for micro-hemorrhage. The bone marrow signal is within normal limits. Paranasal sinuses and mastoid air cells: No significant paranasal sinus disease. Visualized orbits: Orbital contents are intact. IMPRESSION: 1. No evidence of intracranial mass or acute/subacute infarct. 2. Nonspecific white matter changes, likely secondary to small vessel ischemic disease. [facility], , 06/28/2024 12:52 PM
[2024-06-28] MEDS: hydrALAZINE HCL 20 MG/ML 1 ML VIAL IVP STA (13:49)
--- NOTE | 2024-06-28 13:49 | P.CN ---
Psychiatric Consult - . Consult date: 06/28/24 Consult:: 06/28/24 12:17 IDENTIFYING DATA: This patient is a 73-year-old male claims he lives with his mother, , no kids REASON FOR REFERRAL: Psychiatry was consulted for psychiatric evaluation HISTORY OF PRESENT ILLNESS: The patient presented to the hospital initially on 06/27 for altered mental status. 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 Patient also is a however believes that his is still alive. He was brought in by police for psychiatric evaluation. Patient had a urine drug screen which was negative. Troponins were elevated, cardiology is on board. CAT scan of the brain was negative, MRI is pending, neurology is consulted awaiting recommendations. Patient was seen laying in bed today agreeable to speak to designer/writer. Attempting to cooperate. He was a rather poor historian. Believes that he is in a "medical facility in [place]" he believes that today's date is February 02, 2025. He knew his correct age and name. He knew was able to recall 0 out of 3 words for memory recall after 5 minutes. He claims that he came to the hospital because "a doctor in [facility] referred me". He claims that he might have something wrong with his memory. He claims that his mood is "fine" denies any depression or anxiety. Not reporting any paranoia. At this time patient denies any suicidal or homical ideations, intent or plan. Patient denies any auditory, visual hallucinations and denies any paranoia or delusions. Patients admits to using no recreational drugs or cigarette PAST PSYCHIATRIC HISTORY: Patient has no reported psychiatric history. Patient denies being on any psychiatric medications. Patient denies any previous psychiatric hospitalizations. Patient denies any psychiatric outpatient follow- up. Patient denies any history of suicide attempts in the past. PAST MEDICAL HISTORY: As per medical H&P ALLERGIES: as per EMR. CHEMICAL DEPENDENCY HISTORY: as per HPI. FAMILY PSYCHIATRIC/SUBSTANCE USE HISTORY: Claims that his mother had some form of mental illness SOCIAL HISTORY: Patient was born and raised in [facility], claims that he completed his associates degree after high school. States that he does not have any legal history. 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 MENTAL STATUS EXAM: General Appearance: Patient appears to be thin, balding, wearing glasses, stated age is alert, attempts to cooperate, confused at times. Patient appears to have fair hygiene and grooming wearing hospital gown with fair eye contact. Behavior: Patient is calmly lying in bed without any agitated behavior. Attempts to cooperate, confused Speech: Patient's speech is fluent and nonpressured. Mood/Affect: Patient reports their mood is "ok", affect is congruent Suicidality/Homicidality: Patient denies having any suicidal or homicidal ideation intent or plan. Perceptions: Patient denies any visual hallucinations and denies any auditory hallucinations Though content/process: There is no evidence of any delusional thought content and thought process is linear and goal-directed. Poor historian. Memory and concentration: AOX3, grossly intact for the purposes of this session. Can spell "WORLD" backwards Judgment and insight: Poor/limited IMPRESSIONS: Likely major neurocognitive disorder PLAN: -At this time patient DOES NOT meet criteria for inpatient psychiatric admission . -Patient DOES NOT have decision making capacity at this time and is unable to reason through and communicate/appreciate the risks, benefits and alternatives to treatment. -Delirium precautions recommended with patient including - avoiding use of narcotics and LEAD LAYING AND GLUING MACHINE OPERATOR sedatives, limit anticholinergic medications when possible, frequent re-orientation, minimize use of restraints, open window shades during the day and close them at night -Would recommend the following medication changes/additions: Melatonin 3 mg nightly for sleep, BuSpar as needed for anxiety. Please consider starting cog enhancer such as memantine vs aricept etc for memory -Neurology recommendations pending, MRI of brain pending -laundry worker to provide patient with outpatient mental health/psychiatry resources for appropriate follow up upon discharge -Communicated plan to patient's nurse -Would recommend safe placement for patient due to patient's memory and poor cognition -Psychiatry will sign off at this time -Please contact with any questions. 06/28/24 13:42
--- NOTE | 2024-06-28 15:28 | CA ---
Transthoracic Echo Report Name: Nitish Palomo Age: 73 Gender: M : 1950 Exam Date: 06/28/2024 09:48 Exam Location: [facility] Ht (in): 67 Wt (lb): 157 Ordering Physician: Juan Jose Moss DO Attending/Referring Phys: Focus Puller Procedure CPT: Indications: ams Cardiac Hx: Technical Quality: Technically difficult study Contrast 1: Definity Total Dose (mL): 2 Contrast 2: Total Dose (mL): MEASUREMENTS (Male / Female) Normal Values 2D ECHO LV Diastolic Diameter PLAX 4.0 cm 4.2 - 5.9 / 3.9 - 5.3 cm LV Systolic Diameter PLAX 3.3 cm IVS Diastolic Thickness 1.5 cm 0.6 - 1.0 / 0.6 - 0.9 cm LVPW Diastolic Thickness 1.5 cm 0.6 - 1.0 / 0.6 - 0.9 cm LV Relative Wall Thickness 0.8 RV Internal Dim ED PLAX 3.9 cm LVOT Diameter 1.6 cm LV Diastolic Volume MOD BP 142.4 cm??? 67 - 155 / 56 - 104 cm??? LV Systolic Volume MOD BP 85.7 cm??? 22 - 58 / 19 - 49 cm??? LV Ejection Fraction MOD BP 39.8 % >= 55 % LV Cardiac Index MOD BP 2122.6 cm???/min???m??? LV Diastolic Volume MOD 4C 139.2 cm??? LV Systolic Volume MOD 4C 99.0 cm??? LV Ejection Fraction MOD 4C 28.9 % LV Cardiac Index MOD 4C 1505.0 cm???/min???m??? LV Diastolic Length 4C 9.2 cm LV Systolic Length 4C 7.7 cm LV Diastolic Volume MOD 2C 145.4 cm??? LV Systolic Volume MOD 2C 72.1 cm??? LV Ejection Fraction MOD 2C 50.4 % LV Cardiac Index MOD 2C 2746.5 cm???/min???m??? LV Diastolic Length 2C 9.1 cm LV Systolic Length 2C 7.4 cm LA Volume 43.6 cm??? 18 - 58 / 22 - 52 cm??? LA Volume Index 23.7 cm???/m??? 16 - 28 cm???/m??? DOPPLER AV Peak Velocity 131.8 cm/s AV Peak Gradient 6.9 mmHg AV Mean Velocity 95.5 cm/s AV Mean Gradient 4.0 mmHg AV Velocity Time Integral 28.0 cm LVOT Peak Velocity 66.1 cm/s LVOT Peak Gradient 1.7 mmHg LVOT Velocity Time Integral 12.3 cm LVOT Stroke Volume 24.7 cm??? LVOT Stroke Volume Index 13.6 ml/m??? LVOT Cardiac Index 926.1 cm???/min???m??? AV Area Cont Eq vti 0.9 cm??? AV Area Cont Eq pk 1.0 cm??? MV Area PHT 3.7 cm??? Mitral E Point Velocity 41.8 cm/s Mitral A Point Velocity 67.7 cm/s Mitral E to A Ratio 0.6 MV Deceleration Time 206.8 ms MV E' Velocity 3.7 cm/s Mitral E to MV E' Ratio 11.4 FINDINGS Left Ventricle Moderately increased left ventricular wall thickness. S moderately increased left ventricular systolic volume. Moderately decreased left ventricular ejection fraction. Left ventricular ejection fraction is estimated at 40-45 %. Grade 2 diastolic dysfunction. Right Ventricle Mild right ventricular dilatation. Right ventricular systolic pressure within normal limits. Right Atrium Mild right atrial dilatation. Left Atrium Normal left atrial size. Mitral Valve Structurally normal mitral valve. Mild mitral regurgitation. Aortic Valve Trileaflet aortic valve. No aortic stenosis. Thickened aortic valve without stenosis. Mild aortic regurgitation. Tricuspid Valve Structurally normal tricuspid valve. Mild tricuspid regurgitation. Pulmonic Valve Structurally normal pulmonic valve. Trace pulmonic regurgitation. Pericardium No pericardial effusion. Aorta Normal size aortic root and proximal ascending aorta. CONCLUSIONS Left ventricle is mildly enlarged with mild global decrease in contractility estimate ejection fraction of 45% there is.. There is mild mitral aortic and tricuspid regurgitation without pericardial effusion. Right-sided pressures are not well quantified but appear to be normal. Previewed by: Dr. Prashanth Fermin MD (Electronically Signed) Final Date: 28 June 2024 15:28
[2024-06-28] MEDS ORDERED: Potassium Replacement Protocol 1 EACH MISC MISCELLANE PRN (17:37)
--- NOTE | 2024-06-28 17:53 | P.PN ---
Subjective Progress Note Date: 06/28/24 Principal diagnosis: Altered mental status Hospital course: The patient is a 73 year old M with PMH of HTN presents to the ED for altered mental status. 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 Apparently he was fired from his job several months ago after showing up frequently at the wrong times. Apparently his 4 months ago which he is not aware of. He denies any active complaints. Reports feeling well. He denies any headache, lower extremity edema, nausea or vomiting, fever or chills, cough, chest pain, dizziness, shortness of breath, palpitations, changes in urination or bowel habits. In the ED he underwent extensive evaluation. BP 203/127, HR 97, T 98.7F, RR 18, 98% on RA. CBC, Coag panel, CMP significant for RBC 4.04, MCV 102.4, Na 135, Cl 97, Cr 0.57, AST 60. Trop 0.1, 0.102. UA neg LE or nitrite. UDS neg. CT brain neg acute process. CXR neg. EKG sinus arrhythmia, nonspecific ST T wave changes. 06/28 - Patient seen and examined at bedside. He is pleasant, but confused. Denies any active complains. He is alert, oriented to person, day, not place. He states he had a nasal surgery last week and is here for follow up. He also believes his girlfriend, whos name he cannot recall, is also at the hospital for a similar procedure. Folate 6.0, Vitamin B12 266, TSH 2.86. ammonia <9. MRI brain was unremarkable. CMP shows Na 135, potassium 3.3 General: Disheveled, non toxic, no distress Derm: warm, dry Head: atraumatic, normocephalic, symmetric Mouth: no lip lesion, mucus membranes moist Cardiovascular: S1S2 reg, no murmur Lungs: Clear breath sounds bilaterally, no rales , no accessory muscle use Abdomen: nontender to palpation, normal bowel sounds Ext: no gross muscle atrophy, no edema, no contractures Neuro: no focal neuro deficits Psych: Alert and oriented. Based on my assessment of this patient, this patient meets a high complexity level of care. Altered mental status: Unknown etiology. CT brain and MRI brain both neg. UDS neg. B12, Folate, TSH, Ammonia within normal limits. Evaluated by psychiatry, believed to be due to a major neurocognitive disorder. Consider starting Aricept, pending Neurology evaluation. Seizure and Fall precautions. Continue Thiamine 100 mg PO QD. Buspar PRN. Neurology evaluation pending. Social work consult placed for possible placement. Hypertensive urgency: Improved. Discontinued Losartan, started on Valsartan by Cardiology. Troponin elevation: Unknown etiology. Trop 0.1, 0.102. EKG unremarkable. Cardiology following, continue telemetry monitoring. ECHO pending. Continue ASA, atorvastatin daily. Alcohol abuse: CIWA protocol with Ativan PRN per protocol. Macrocytosis: Normal folate, B12 levels. continue to monitor Hypokalemia: replace per protocol, check Mg in the AM CODE STATUS: FULL CODE. DVT Prophylaxis: SCD GI Prophylaxis: Designated medical POA if patient is not able to make medical decisions for them selves: Son I have reviewed the following consultant luxury and auto. vice president jaguar [employer] (ex ) notes: Cardiology, Psychiatry I have reviewed the results of the following tests: As above. I have ordered the following tests: As above. I have discussed the care of this patient with the following independent historian: RN, bedside sitter I have independently interpreted the following test below: I have discussed the management of this patient with the following physician: Objective - Vital Signs Vital signs: Vital Signs Temp 98.7 F 06/27/24 08:33 Pulse 64 06/28/24 17:22 Resp 18 06/28/24 17:22 BP 166/96 06/28/24 17:22 Pulse Ox 98 06/28/24 17:22 FiO2 Intake & Output 06/27/24 06/28/24 06/28/24 18:59 06:59 18:59 Weight 71.214 kg - Labs CBC & Chem 7: 06/28/24 06:59 06/28/24 06:59 Labs: Abnormal Lab Results - Last 24 Hours (Table) 06/28/24 06/28/24 Range/Units 06:59 06:59 RBC 4.05 L (4.30-5.90) m/uL MCV 104.1 H (80.0-100.0) fL MCH 35.4 H (25.0-35.0) pg Sodium 135 L (137-145) mmol/L Potassium 3.3 L (3.5-5.1) mmol/L Chloride 97 L (98-107) mmol/L Carbon Dioxide 32 H (22-30) mmol/L Creatinine 0.63 L (0.66-1.25) mg/dL Total Protein 6.2 L (6.3-8.2) g/dL
[2024-06-28] MEDS: ATORVASTATIN 40 MG TAB PO SCH (19:36)
[2024-06-28] MEDS: MELATONIN 3 MG TABLET PO SCH (19:36)
[2024-06-28] MEDS: POTASSIUM CHLORIDE ER 20 MEQ TAB.ER PO SCH (23:32)
[2024-06-29 07:35] LABS: African American GFR (CKD) >90 (>60 ml/min/1.73 sqM); Anion Gap 8 mmol/L; Blood Urea Nitrogen 15 mg/dL (9-20); Carbon Dioxide 29 mmol/L (22-30); Chloride 98 mmol/L (98-107); Glucose 89 mg/dL (74-99); Non-African American GFR(CKD) >90 (>60 ml/min/1.73 sqM); Potassium 4.4 mmol/L (3.5-5.1); Sodium 135 mmol/L (137-145)
--- NOTE | 2024-06-29 08:33 | P.CNNES ---
History of Present Illness Consult date: 06/28/24 Requesting physician: Juan Jose Moss Reason for Consult: ams History of Present Illness: Patient is a 73-year-old right-handed male came to the hospital by ambulance yesterday at 8:32 AM for altered mental status. Patient apparently has history of dementia, not able to provide appropriate history. Patient states that he came to the hospital because he had "trouble with right thumb", as it did not want to move, stuffy nose and congestion. He states that he has some medication change recently as well. Patient states that he lives with his girlfriend, pointing to the young sitter, sitting beside him in the ER. I asked name of his girlfriend, but he said "I can't think of her name". Patient states he has no children. As per EMS flowsheet, when they arrived, patient was sitting in the police department lobby with mental health services on the scene. 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 An old employee of his was at the scene, who states patient has history of dementia but this was was worse than normal. Patient was alert and orient x 2. Patient kept referring to his , who has last year. Patient said he was 57 years old. Vitals at the scene was blood pressure 214/139, pulse rate 107 respiration 16 saturation 94%. Blood sugar 110. EKG showed sinus rhythm. Chest x-ray showed no evidence for acute pulmonary disease. CT head showed no acute intracranial process. Nonspecific white matter changes, likely secondary to chronic small vessel ischemic disease. I personally reviewed CT head, agree with the findings. There is evidence of old ischemia in the right parietal and right superior frontal region. 2D echo revealed mildly enlarged left ventricle with mild global decrease in contractility with EF 45%. Normal left atrial size. Mild AR. Home medication include metoprolol, losartan, vitamin D, vitamin C. Patient states he has smoked half pack per day since he was age 15. Just for 6 years he did quit smoking tobacco but then resumed it 4 years ago. He drinks alcohol occasionally. Review of Systems Patient denies any chest pain, headache, abdominal pain and nausea vomiting diarrhea. All other pertinent positive and negative review of systems mentioned in the HPI. ROS unobtainable: due to mental status Past Medical History Past Medical History: Chest Pain / Angina, Hypertension History of Any Multi-Drug Resistant Organisms: None Reported Past Surgical History: No Surgical Hx Reported Past Psychological History: No Psychological Hx Reported Smoking Status: Light tobacco smoker Past Alcohol Use History: Rare Past Drug Use History: None Reported - Past Family History Father History Unknown: Yes Medications and Allergies Home Medications Medication Instructions Recorded Confirmed Type Ascorbic Acid [Vitamin C] 500 mg PO DAILY 05/29/24 06/27/24 History Cholecalciferol [Vitamin D3 (25 50 mcg PO BID 05/29/24 06/27/24 History Mcg = 1000 Iu)] Losartan [Cozaar] 50 mg PO BID 05/29/24 06/27/24 History Metoprolol Succinate (ER) [Toprol 100 mg PO DAILY 05/29/24 06/27/24 History Xl] Allergies Allergy/AdvReac Type Severity Reaction Status Date / Time lisinopril Allergy Cough Verified 06/27/24 10:25 Physical Examination - Vital Signs Vital Signs: Vital Signs Pulse Resp BP Pulse Ox 06/28/24 14:24 134/76 06/28/24 13:59 151/105 06/28/24 13:26 69 16 192/105 99 06/28/24 11:00 60 18 154/97 98 06/28/24 08:25 61 16 178/99 98 06/28/24 06:00 58 L 16 171/100 06/28/24 04:00 59 L 18 172/103 06/28/24 02:00 59 L 16 174/95 98 06/27/24 23:27 62 16 174/104 95 06/27/24 21:00 67 18 174/90 97 06/27/24 19:39 66 16 06/27/24 18:21 67 16 162/93 97 Patient is an elderly male, laying in the bed, in no acute distress. A sitter is present by the bedside. Patient was seen in the ER. Patient is alert awake, particularly oriented. He knows his name, states is 74 years old. Patient states it is October and the year is . He knows that he is in [facility] in [facility], but he believes current president is Mr. Bolton. Speech and language functions are normal. Patient can name all objects presented and repeat very well. No aphasia or dysarthria. Attention, concentration is intact and fund of knowledge is limited. Patient has negative visuospatial apraxia, mildly positive palmomental reflex. On cranial nerve examination, pupils are equal, round and reacting to light, visual babin are full on confrontation, with no neglect on double simultaneous stimulation. Extraocular muscles are intact with no nystagmus. Face is symmetric, tongue protrudes to the midline. Palatal elevation and sensation normal, hearing and shoulder shrug normal, facial sensation normal. On muscle strength testing, there is no pronator drift and the strength is normal in arms and legs distally and proximally. Deep tendon reflexes are symmetric 1 at the brachioradialis, 2 at the biceps, 1+ at the knees, and plantars downgoing bilaterally. Sensory to touch is equal with no neglect on double simultaneous stimulation. Cerebellar function showed no ataxia for [id number] testing. No dysdiadochokinesia. No ataxia for [id number] testing on either side. Tone and bulk of muscles normal. Gait deferred.. On general examination, there is no carotid bruit or murmur, S1-S2 audible. Chest is clear on consultation. Abdomen is soft nontender. No organomegaly, bowel sounds present. Peripheral pulses are present. No peripheral edema. Results - Laboratory Findings CBC and BMP: 06/28/24 06:59 06/29/24 06:02 Abnormal Lab Findings: Abnormal Labs 06/27/24 06/27/24 06/27/24 08:55 08:55 08:55 RBC 4.04 L MCV 102.4 H MCH 35.6 H Sodium 135 L Potassium Chloride 97 L Carbon Dioxide Creatinine 0.57 L AST 60 H Troponin I 0.100 H* Total Protein Urine Protein Urine Ketones Urine Blood Urine Mucus 06/27/24 06/27/24 06/27/24 09:38 12:03 14:32 RBC MCV MCH Sodium Potassium Chloride Carbon Dioxide Creatinine AST Troponin I 0.102 H* 0.104 H* Total Protein Urine Protein 1+ H Urine Ketones 1+ H Urine Blood Trace H Urine Mucus Rare H 06/28/24 06/28/24 06:59 06:59 RBC 4.05 L MCV 104.1 H MCH 35.4 H Sodium 135 L Potassium 3.3 L Chloride 97 L Carbon Dioxide 32 H Creatinine 0.63 L AST Troponin I Total Protein 6.2 L Urine Protein Urine Ketones Urine Blood Urine Mucus Assessment and Plan Assessment: * Altered mental status, likely due to cognitive impairment. Rule out delirium. * Hypertension * Elevated troponin * B12, folate deficiency * X tobacco use Plan: * Patient probably has moderate dementia. Workup is negative as below. Agree with starting Aricept for cognitive impairment. * MRI of brain revealed no evidence of intracranial mass or acute/subacute infarct. Nonspecific white matter changes, likely secondary to small vessel ischemic disease. I personally reviewed MR agree with the findings. * 2-D echo revealed left ventricle is mildly enlarged with moderately decreased LVEF 40-45%. Normal left atrial size. Mild right atrial dilation. Mild AR,, MR and TR. * B12 266, folate 6.0, TSH 2.86. Patient has B12 and folate deficiency. We will start replacement. * We will try to obtain collateral history from family members. * Neurology will follow. Thank you for the consult.
[2024-06-29] MEDS: CYANOCOBALAMIN 1,000 MCG/ML 1 ML VIAL IM ONE (09:37)
[2024-06-29 12:58] LABS: Chol/HDL Ratio 2.37 Ratio; LDL Cholesterol,Calculated 96.6 mg/dL (0.0-131.0); VLDL Calculation 19.04 mg/dL (5.00-40.00)
--- NOTE | 2024-06-29 13:26 | P.PN ---
Subjective Progress Note Date: 06/29/24 Patient is a 73-year-old male with past medical history of hypertension and alcohol abuse, who presented to the hospital with mental status changes. Cardiology was consulted for abnormal troponins. Flat trend on troponins with nonspecific ST and T wave abnormalities on EKG. Patient was asymptomatic, how ever was notably hypertensive. Yesterday the patient was started on valsartan. Patient interviewed and examined sitting up in the recliner chair. He denies any current chest pain or difficulty breathing. No dizziness or lightheadedness. GENERAL: Well-appearing, well-nourished and in no acute distress. NECK: Supple without JVD or thyromegaly. LUNGS: Breath sounds clear to auscultation bilaterally. Respiration equal and unlabored. No wheezes, rales or rhonchi. HEART: Regular rate and rhythm without murmurs, rubs or gallops. S1 and S2 heard. EXTREMITIES: Normal range of motion, no edema. No clubbing or cyanosis. Peripheral pulses intact and strong. TELEMETRY: Rhythm overnight LABS: 135, potassium 4.4, BUN 15, creatinine 0.56, magnesium 2.0 IMPRESSION: Mental status changes Hypertensive urgency Cardiomyopathy, EF 40 to 45% History of EtOH abuse PLAN: Increase valsartan to twice daily Consider switching metoprolol to carvedilol if blood pressures remain elevated Further recommendations to be based upon clinical course I am dictating on behalf of Dr Sami Dickson's history/physical and assessment/plan. Objective - Vital Signs Vital signs: Vital Signs Temp 97.6 F 06/29/24 09:22 Pulse 62 06/29/24 09:22 Resp 16 06/29/24 09:22 BP 153/76 06/29/24 09:22 Pulse Ox 100 06/29/24 09:22 FiO2 Intake & Output 06/28/24 06/29/24 06/29/24 18:59 06:59 18:59 Intake Total 120 20 130 Balance 120 20 130 Weight 71.214 kg 59.5 kg Intake: IV 20 10 Invasive Line 1 20 10 Oral 120 120 Other: Voiding Method Toilet Toilet # Voids 1 - Labs CBC & Chem 7: 06/28/24 06:59 06/29/24 06:02 Labs: Abnormal Lab Results - Last 24 Hours (Table) 03/22/25 Range/Units 06:02 Sodium 135 L (137-145) mmol/L Creatinine 0.56 L (0.66-1.25) mg/dL
--- NOTE | 2024-06-29 13:39 | P.PN ---
Subjective Progress Note Date: 06/29/24 Patient is a poor historian. Majority of information obtained from chart review. 73 year old M with PMH HTN presents to the ED for altered mental status. 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 Apparently he was fired from his job several months ago after showing up frequently at the wrong times. Apparently his 4 months ago which he is not aware of. He reports drinking 2 beers, 4 times a week for an unknown amount of time. He denies any active complaints. Reports feeling well. He denies any headache, lower extremity edema, nausea or vomiting, fever or chills, cough, chest pain, dizziness, shortness of breath, palpitations, changes in urination or bowel habits. In the ED he underwent extensive evaluation. BP 203/127, HR 97, T 98.7F, RR 18, 98% on RA. CBC, Coag panel, CMP significant for RBC 4.04, MCV 102.4, Na 135, Cl 97, Cr 0.57, AST 60. Trop 0.1, 0.102. UA neg LE or nitrite. UDS neg. CT brain neg acute process. CXR neg. EKG sinus arrhythmia, nonspecific ST T wave changes. 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 MRI brain showed no acute process. B12 266. Folate 6. TSH 2.86. Ammonia < 9. Neurology recommended B12 and Folate replacement. Cardiology consulted for elevated Troponin of 0.1, 0.102. Echo ordered showing EF 40-45%, moderate LVH, mild AR/MR/TR. Cardiology adjusted antihypertensive medications. 06/29 Patient was seen and examined. Pleasantly confused. BMP Na 135, Cr 0.56. Mag 2.0. Cardiology recommends increase valsartan to BID dosing and considering switch from Metoprolol to Coreg if BP is elevated. Apparently nephew is the guardian and is recommending placement and change in CODE status. General: non toxic, no distress, disheveled Derm: warm, dry Head: atraumatic, normocephalic, symmetric Mouth: no lip lesion, mucus membranes moist Cardiovascular: S1S2 reg, no murmur Lungs: Decreased BS bilaterally, no rales , no accessory muscle use Ext: no gross muscle atrophy, no edema, no contractures Neuro: no focal neuro deficits Psych: Alert and oriented. Based on my assessment of this patient, this patient meets a high complexity level of care. Altered mental status: Unknown etiology. History of EtOH use. CT brain neg. UDS neg. MRI brain neg acute process. B12 266. Folate 6. TSH 2.86. Ammonia < 9. Seizure and Fall precautions. Thiamine 100 mg PO QD. Neurology and Psychiatry on board. Hypertensive urgency: Most recent BP 178/84. Valsartan 160 mg PO BID. Metoprolol 100 mg PO QD. Troponin elevation: Possibly related to hypertensive urgency. ACS ruled out. Echo as above. Telemetry monitoring. Cardiology on board. Alcohol abuse: CIWA protocol with Ativan PRN per protocol. Macrocytosis: B12 and Folate as above. B12 1000 mcg PO QD. Folic acid 1 mg PO QD. CODE STATUS: FULL CODE. DVT Prophylaxis: SCD GI Prophylaxis: Designated medical POA if patient is not able to make medical decisions for themselves: Son I have reviewed the following product development consultant notes: Cardiology note. I have reviewed the results of the following tests: BMP. Mag. Echo. B12. Folate. TSH. Ammonia. MRI brain. I have ordered the following tests: I have discussed the care of this patient with the following independent historian: IZABELLA. I have independently interpreted the following test below: I have discussed the management of this patient with the following physician: Objective - Vital Signs Vital signs: Vital Signs Temp 97.5 F L 06/29/24 11:24 Pulse 55 L 06/29/24 11:24 Resp 18 06/29/24 11:24 BP 178/84 06/29/24 11:24 Pulse Ox 98 06/29/24 11:24 FiO2 Intake & Output 06/28/24 06/29/24 06/29/24 18:59 06:59 18:59 Intake Total 120 20 130 Balance 120 20 130 Weight 71.214 kg 59.5 kg Intake: IV 20 10 Invasive Line 1 20 10 Oral 120 120 Other: Voiding Method Toilet Toilet # Voids 1 3 - Labs CBC & Chem 7: 06/28/24 06:59 06/29/24 06:02 Labs: Abnormal Lab Results - Last 24 Hours (Table) 06/28/24 06/29/24 Range/Units 06:59 06:02 Sodium 135 L (137-145) mmol/L Creatinine 0.56 L (0.66-1.25) mg/dL HDL Cholesterol 84.40 H (40.00-60.00) mg/dL
[2024-06-29] MEDS: amLODIPine 10 MG TAB PO SCH (17:19)
[2024-06-29] MEDS: VALSARTAN 160 MG TAB PO SCH (20:37)
[2024-06-29] MEDS: DONEPEZIL 5 MG TAB PO SCH (20:37)
[2024-06-29] MEDS: busPIRone HCl 5 MG TAB PO PRN (22:35)
[2024-06-30] MEDS ORDERED: ONDANSETRON 4 MG/2 ML VIAL IVP PRN (06:42)
[2024-06-30] MEDS: CYANOCOBALAMIN 500 MCG TAB PO SCH (08:27)
--- NOTE | 2024-06-30 08:30 | P.PN ---
Subjective Progress Note Date: 06/29/24 Patient is was seen for a follow-up. A sitter was present by the bedside. She mentions that patient is quite confused. He thinks that he is not in a hospital. He thinks he has to go to work. He thinks the sitter sitting next to him is his . Apparently his has . He did take shower. Patient admits to drinking about 6 packs of 12 ounce alcohol per week. He considers himself having "mild" alcoholism. Not heavy alcoholism. Objective - Vital Signs Vital signs: Vital Signs Temp 97.5 F L 06/29/24 15:32 Pulse 57 L 06/29/24 15:32 Resp 16 06/29/24 15:32 BP 188/90 06/29/24 15:32 Pulse Ox 99 06/29/24 15:32 FiO2 Intake & Output 06/28/24 06/29/24 06/29/24 18:59 06:59 18:59 Intake Total 120 20 250 Balance 120 20 250 Weight 71.214 kg 59.5 kg Intake: IV 20 10 Invasive Line 1 20 10 Oral 120 240 Other: Voiding Method Toilet Toilet # Voids 1 3 - Exam Patient is alert and awake in no distress. Patient states it is June and the year is 2024. 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 He knows name of the current president Mr. Keen today. Speech and language functions are normal. Rest of the examination is nonfocal. - Labs CBC & Chem 7: 06/28/24 06:59 06/29/24 06:02 Labs: Abnormal Lab Results - Last 24 Hours (Table) 06/28/24 06/29/24 Range/Units 06:59 06:02 Sodium 135 L (137-145) mmol/L Creatinine 0.56 L (0.66-1.25) mg/dL HDL Cholesterol 84.40 H (40.00-60.00) mg/dL Assessment and Plan Assessment: * Altered mental status, likely due to cognitive impairment. Rule out delirium. * Hypertension * Elevated troponin * B12, folate deficiency * X tobacco use Plan: * Patient probably has moderate dementia. Workup is negative as below. * Start Aricept 5 mg daily. * MRI of brain revealed no evidence of intracranial mass or acute/subacute infarct. Nonspecific white matter changes, likely secondary to small vessel ischemic disease. I personally reviewed MR agree with the findings. * 2-D echo revealed left ventricle is mildly enlarged with moderately decreased LVEF 40-45%. Normal left atrial size. Mild right atrial dilation. Mild AR,, MR and TR. * B12 266, folate 6.0, TSH 2.86. Patient has B12 and folate deficiency. We will start replacement. * I tried to contact patient's nephew Shahid Hermosillo at [phone], to obtain collateral history, but he did not machine operator picker the phone. * Dr. Sekou Lovett to resume neurology service for the morning.
--- NOTE | 2024-06-30 09:52 | P.PN ---
Subjective Progress Note Date: 06/30/24 This is Barrera Contreras NP, I'm dictating on behalf of Dr. Dickson's H&P and A&P. Patient was interviewed and examined. Patient is a pleasant 73-year-old male who was admitted to the hospital with mental status changes, found to have elevated troponins with a flat trend and nonspecific ST and T wave abnormalities. Patient was asymptomatic, hypertensive. Patient reports that he is feeling better today. His blood pressures are still elevated. GENERAL: Well-appearing, well-nourished and in no acute distress. NECK: Supple without JVD or thyromegaly. LUNGS: Breath sounds clear to auscultation bilaterally. Respiration equal and unlabored. No wheezes, rales or rhonchi. HEART: Regular rate and rhythm without murmurs, rubs or gallops. S1 and S2 heard. EXTREMITIES: Normal range of motion, no edema. No clubbing or cyanosis. Peripheral pulses intact and strong. VITALS: Temp 97.6, pulse 72, respirations 14, blood pressure 170/81, O2 saturation 98% on room air TELEMETRY: Sinus mechanism LABS: No new labs since 06/29/2024 IMPRESSION: 1. Mental status changes 2. Hypertensive urgency 3. Cardiomyopathy, EF 40 to 45% 4. History of EtOH abuse PLAN: Continue valsartan. Discontinue metoprolol, start carvedilol 6.25 mg twice daily. Check blood pressures manually for more accurate reading. Further recommendations based on patient's clinical course. Objective - Vital Signs Vital signs: Vital Signs Temp 97.6 F 06/30/24 08:16 Pulse 72 06/30/24 08:16 Resp 14 06/30/24 08:16 BP 170/81 06/30/24 08:16 Pulse Ox 98 06/30/24 08:16 FiO2 Intake & Output 06/29/24 06/30/24 06/30/24 18:59 06:59 18:59 Intake Total 490 Balance 490 Weight 62.2 kg Intake: IV 10 Invasive Line 1 10 Oral 480 Other: Voiding Method Toilet Toilet Toilet # Voids 2 1 # Bowel Movements 1 - Labs CBC & Chem 7: 06/28/24 06:59 06/29/24 06:02 Labs: Abnormal Lab Results - Last 24 Hours (Table) 06/28/24 Range/Units 06:59 HDL Cholesterol 84.40 H (40.00-60.00) mg/dL
--- NOTE | 2024-06-30 10:18 | P.PN ---
Subjective Progress Note Date: 06/30/24 Patient is a poor historian. Majority of information obtained from chart review. 73 year old M with PMH HTN presents to the ED for altered mental status. 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 Apparently he was fired from his job several months ago after showing up frequently at the wrong times. Apparently his 4 months ago which he is not aware of. He reports drinking 2 beers, 4 times a week for an unknown amount of time. He denies any active complaints. Reports feeling well. He denies any headache, lower extremity edema, nausea or vomiting, fever or chills, cough, chest pain, dizziness, shortness of breath, palpitations, changes in urination or bowel habits. In the ED he underwent extensive evaluation. BP 203/127, HR 97, T 98.7F, RR 18, 98% on RA. CBC, Coag panel, CMP significant for RBC 4.04, MCV 102.4, Na 135, Cl 97, Cr 0.57, AST 60. Trop 0.1, 0.102. UA neg LE or nitrite. UDS neg. CT brain neg acute process. CXR neg. EKG sinus arrhythmia, nonspecific ST T wave changes. 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 MRI brain showed no acute process. B12 266. Folate 6. TSH 2.86. Ammonia < 9. Neurology recommended B12 and Folate replacement. Cardiology consulted for elevated Troponin of 0.1, 0.102. Echo ordered showing EF 40-45%, moderate LVH, mild AR/MR/TR. Cardiology adjusted antihypertensive medications. 06/30 Patient was seen and examined. Pleasantly confused. BP 177/86 HR 83 this morning. Nephew is the guardian and is recommending placement and change in CODE status. Cardiology recommends switching Metoprolol to Coreg for better BP control. General: non toxic, no distress, disheveled Derm: warm, dry Head: atraumatic, normocephalic, symmetric Mouth: no lip lesion, mucus membranes moist Cardiovascular: S1S2 reg, no murmur Lungs: Decreased BS bilaterally, no rales , no accessory muscle use Ext: no gross muscle atrophy, no edema, no contractures Neuro: no focal neuro deficits Psych: Alert and oriented. Based on my assessment of this patient, this patient meets a high complexity level of care. Altered mental status likely severe neurocognitive disorder: History of EtOH use. CT brain neg. UDS neg. MRI brain neg acute process. B12 266. Folate 6. TSH 2.86. Ammonia < 9. Seizure and Fall precautions. Thiamine 100 mg PO QD. B12 1000 mcg PO QD. Folic acid 1 mg PO QD. Neurology and Psychiatry on board. Hypertensive urgency: Most recent BP 177/86 HR 83. Valsartan 160 mg PO BID. Metoprolol switched to Coreg 6.25 mg PO BID by Cardiology today. + Amlodipine 10 mg PO QD. Troponin elevation: Possibly related to hypertensive urgency. ACS ruled out. Echo as above. Possible outpatient ischemic workup. Telemetry monitoring. Cardiology on board. Alcohol abuse: CIWA protocol with Ativan PRN per protocol. Macrocytosis: B12 and Folate replacement as above. CODE STATUS: FULL CODE. DVT Prophylaxis: SCD GI Prophylaxis: Designated medical POA if patient is not able to make medical decisions for themselves: Nephew Dispo: Pending placement in a safe environment. He is not safe to be at home. He has a guardian who is his nephew. I have reviewed the following senior financial consultant notes: Cardiology note. I have reviewed the results of the following tests: I have ordered the following tests: I have discussed the care of this patient with the following independent historian: I have independently interpreted the following test below: I have discussed the management of this patient with the following physician: Objective - Vital Signs Vital signs: Vital Signs Temp 97.6 F 06/30/24 06:34 Pulse 83 06/30/24 06:34 Resp 16 06/30/24 03:29 BP 177/86 06/30/24 06:34 Pulse Ox 100 06/30/24 03:29 FiO2 Intake & Output 06/29/24 06/30/24 06/30/24 18:59 06:59 18:59 Intake Total 490 Balance 490 Weight 62.2 kg Intake: IV 10 Invasive Line 1 10 Oral 480 Other: Voiding Method Toilet Toilet # Voids 2 1 # Bowel Movements 1 - Labs CBC & Chem 7: 06/28/24 06:59 06/29/24 06:02 Labs: Abnormal Lab Results - Last 24 Hours (Table) 06/28/24 Range/Units 06:59 HDL Cholesterol 84.40 H (40.00-60.00) mg/dL
[2024-06-30] MEDS: carvediloL 6.25 MG TAB PO SCH (16:58)
--- NOTE | 2024-07-01 06:41 | P.PN ---
Subjective Progress Note Date: 07/01/24 The patient is a pleasant 73-year-old gentleman with a past medical history significant for history of gall use and possible underlying dementia as well as hypertension and hypertensive heart disease and recently diagnosis of cardiomyopathy with EF around 45 to 50% was admitted to the hospital with hypert ension emergency and the change in mental status and was found to have mildly abnormal cardiac enzymes treated medically July 01, 2024 The patient was seen and evaluated this morning. He is asymptomatic but the pressure remains elevated and consistent with stage II hypertension and sometimes crisis. He is bradycardic as well. He is on beta-chayo as well as valsartan been going to add hydrochlorothiazide to the current medical regimen. Kidney function is within normal limits. The physical examination is remarkable for regular rhythm with a soft systolic murmur at the right upper sternal border with diminished breathing sounds bilaterally and no edema was noted in the lower extremities Assessment Hypertension emergency Change in mental status Evidence of myocardial injury with no evidence of ischemia Abnormal EKG with evidence of hypertensive heart disease Mild cardiomyopathy likely secondary to hypertensive heart disease Multiple comorbid conditions including alcohol use Plan Continue the current medical regimen Add hydrochlorothiazide to the current medical regimen Consider ruling out severe CAD probably as an outpatient Follow-up with the patient Objective - Vital Signs Vital signs: Vital Signs Temp 97.5 F L 07/01/24 04:00 Pulse 55 L 07/01/24 04:00 Resp 16 07/01/24 04:00 BP 178/88 07/01/24 04:00 Pulse Ox 100 07/01/24 04:00 FiO2 Intake & Output 06/30/24 06/30/24 07/01/24 06:59 18:59 06:59 Intake Total 490 20 Balance 490 20 Weight 62.2 kg 61.8 kg Intake: IV 10 20 Invasive Line 1 10 20 Oral 480 Other: Voiding Method Toilet Toilet Toilet # Voids 1 3 3 # Bowel Movements 1 - Labs CBC & Chem 7: 06/28/24 06:59 06/29/24 06:02
[2024-07-01] MEDS: hydroCHLOROthiazide 25 MG TAB PO SCH (07:58)
--- NOTE | 2024-07-01 13:54 | P.PN ---
Subjective Progress Note Date: 07/01/24 Hospital Course: Patient is a poor historian. Majority of information obtained from chart review. 73 year old M with PMH HTN presents to the ED for altered mental status. 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 Apparently he was fired from his job several months ago after showing up frequently at the wrong times. Apparently his 4 months ago which he is not aware of. He reports drinking 2 beers, 4 times a week for an unknown amount of time. He denies any active complaints. Reports feeling well. He denies any headache, lower extremity edema, nausea or vomiting, fever or chills, cough, chest pain, dizziness, shortness of breath, palpitations, changes in urination or bowel habits. In the ED he underwent extensive evaluation. BP 203/127, HR 97, T 98.7F, RR 18, 98% on RA. CBC, Coag panel, CMP significant for RBC 4.04, MCV 102.4, Na 135, Cl 97, Cr 0.57, AST 60. Trop 0.1, 0.102. UA neg LE or nitrite. UDS neg. CT brain neg acute process. CXR neg. EKG sinus arrhythmia, nonspecific ST T wave changes. 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 MRI brain showed no acute process. B12 266. Folate 6. TSH 2.86. Ammonia < 9. Neurology recommended B12 and Folate replacement. Cardiology consulted for elevated Troponin of 0.1, 0.102. Echo ordered showing EF 40-45%, moderate LVH, mild AR/MR/TR. Cardiology adjusted antihypertensive medications. Metoprolol switched to Coreg 6.25 mg p.o. twice daily, added amlod ipine 10 mg p.o. daily, hydrochlorothiazide 25 p.o. daily. PT OT reassessed the patient, support discharged home, social work following Pertinent Imaging: No new imaging Subjective: Denied any complaints Pertinent positives and negatives as discussed above, a complete review of systems was performed and all other systems are negative. Vitals Signs Reviewed. General: [nontoxic], [no distress], [appears at stated age] Derm: [warm], [dry] Head: [atraumatic], [normocephalic], [symmetric] Eyes: [EOMI], [no lid lag], [anicteric sclera] Mouth: [no lip lesion], [mucus membranes moist] Cardiovascular: [S1S2 reg], [no murmur] Lungs: [CTA bilateral], [no rhonchi, no rales] , [no accessory muscle use] Abdominal: [soft], [ nontender to palpation], [no guarding], [no appreciable organomegaly] Ext: [no gross muscle atrophy], [no edema], [no contractures] Neuro: [ CN II-XI grossly intact], [no focal neuro deficits] Psych: [Alert], [oriented to self, states that he is somewhere in [facility], did not remember who is the president of the [employer], did not remember the month, able to tell me the year. Data Reviewed Today: Pertinent Labs: No new i lab work today Assessment and Plan: Altered mental status likely severe neurocognitive disorder Folate and B12 deficiency History of EtOH use -CT brain neg. UDS neg -MRI brain neg acute process -B12 266. Folate 6. TSH 2.86. Ammonia < 9 -Seizure and Fall precautions -Thiamine 100 mg PO QD. B12 1000 mcg PO QD. Folic acid 1 mg PO QD. -Neurology and Psychiatry on board. -stable for discharge, discussed with social work, pending placement Hypertensive urgency, possibly related to hypertensive urgency. Troponin elevation -Valsartan 160 mg PO BID. Metoprolol switched to Coreg 6.25 mg PO BID by Cardiology today. + Amlodipine 10 mg PO QD., cardiology added hydrochlorothiazide 25 daily -ACS ruled out. Echo as above. Possible outpatient ischemic workup. Telemetry monitoring. Cardiology on board. Alcohol abuse: CIWA protocol with Ativan PRN per protocol. DVT ppx: SCD Code status: No code Anticipated discharge [facility]: [facility] Anticipated discharge time: Medically stable, pending placement Objective - Vital Signs Vital signs: Vital Signs Temp 97.5 F L 07/01/24 07:57 Pulse 58 L 07/01/24 12:30 Resp 18 07/01/24 12:30 BP 146/99 07/01/24 12:30 Pulse Ox 99 07/01/24 12:30 FiO2 Intake & Output 06/30/24 07/01/24 07/01/24 18:59 06:59 18:59 Intake Total 490 20 796 Balance 490 20 796 Weight 61.8 kg Intake: IV 10 20 20 Invasive Line 1 10 20 20 Oral 480 776 Other: Voiding Method Toilet Toilet Toilet # Voids 3 3 2 # Bowel Movements 1 - Labs CBC & Chem 7: 06/28/24 06:59 06/29/24 06:02
--- NOTE | 2024-07-01 14:03 | P.PN ---
Subjective Progress Note Date: 07/01/24 I am seeing the patient for the first time during this admission. Please refer to Dr. Posada's notes for further details. Per Dr. Posada, patient altered mental status is likely due to cognitive impairment and he started him on Aricept. Objective - Vital Signs Vital signs: Vital Signs Temp 97.5 F L 07/01/24 07:57 Pulse 58 L 07/01/24 12:30 Resp 18 07/01/24 12:30 BP 146/99 07/01/24 12:30 Pulse Ox 99 07/01/24 12:30 FiO2 Intake & Output 06/30/24 07/01/24 07/01/24 18:59 06:59 18:59 Intake Total 490 20 796 Balance 490 20 796 Weight 61.8 kg Intake: IV 10 20 20 Invasive Line 1 10 20 20 Oral 480 776 Other: Voiding Method Toilet Toilet Toilet # Voids 3 3 2 # Bowel Movements 1 - Exam General: Sitting in a recliner chair and is not in acute distress. Neuro: The patient is awake, alert, oriented to self and current year only. He correctly named objects such as glasses and pen. Is following simple commands. No aphasia. Pupils are round, equal and reactive to light. Visual babin are full to confrontation. No facial weakness. No dysarthria. Motor: Strength is 5/5 throughout. - Labs CBC & Chem 7: 06/28/24 06:59 06/29/24 06:02 Assessment and Plan Assessment: * Altered mental status, likely due to cognitive impairment. * Hypertension * Elevated troponin * B12, folate deficiency * X tobacco use Plan: * Dr. Posada, started him on Aricept 5 mg daily. * MRI of brain revealed no evidence of intracranial mass or acute/subacute infarct. Nonspecific white matter changes, likely secondary to small vessel ischemic disease. * 2-D echo revealed left ventricle is mildly enlarged with moderately decreased LVEF 40-45%. Normal left atrial size. Mild right atrial dilation. Mild AR,, MR and TR. * B12 266, folate 6.0, TSH 2.86. Patient has B12 and folate deficiency. We will start replacement. * Recommend the patient to follow-up with neurologist as outpatient within 2-3 weeks and recommend neuropsych evaluation for detailed memory testing. Otherwise no further neurological work-up. Will sign off. Please reconsult if needed. Time with Patient: Less than 30
--- NOTE | 2024-07-02 06:57 | P.PN ---
Subjective Progress Note Date: 07/02/24 The patient is a pleasant 73-year-old gentleman with a past medical history significant for history of gall use and possible underlying dementia as well as hypertension and hypertensive heart disease and recently diagnosis of cardiomyopathy with EF around 45 to 50% was admitted to the hospital with hypert ension emergency and the change in mental status and was found to have mildly abnormal cardiac enzymes treated medically July 01, 2024 The patient was seen and evaluated this morning. He is asymptomatic but the pressure remains elevated and consistent with stage II hypertension and sometimes crisis. He is bradycardic as well. He is on beta-chayo as well as valsartan been going to add hydrochlorothiazide to the current medical regimen. Kidney function is within normal limits. The physical examination is remarkable for regular rhythm with a soft systolic murmur at the right upper sternal border with diminished breathing sounds bilaterally and no edema was noted in the lower extremities July 02, 2024 The patient was seen and evaluated this morning with he is asymptomatic. The pressure appears to be under good control on the current medical regimen. The echo showed mild cardiomyopathy with global hypokinesia and no regional wall motion abnormalities. Severe CAD to be ruled out probably as an outpatient. The physical examination is remarkable for regular rhythm with a soft systolic murmur and clear breathing sounds bilaterally and no edema was noted in the lower extremities Assessment Hypertension emergency Change in mental status Evidence of myocardial injury with no evidence of ischemia Abnormal EKG with evidence of hypertensive heart disease Mild cardiomyopathy likely secondary to hypertensive heart disease Multiple comorbid conditions including alcohol use Plan Continue the current medical regimen The patient can be discharged home Objective - Vital Signs Vital signs: Vital Signs Temp 99.1 F 07/02/24 04:00 Pulse 89 07/02/24 04:00 Resp 18 07/02/24 04:00 BP 147/87 07/02/24 04:00 Pulse Ox 95 07/02/24 04:00 FiO2 Intake & Output 07/01/24 07/01/24 07/02/24 06:59 18:59 06:59 Intake Total 20 926 10 Balance 20 926 10 Weight 61.8 kg 60.4 kg Intake: IV 20 30 10 0.9 10 Invasive Line 1 20 20 Invasive Line 2 10 Oral 896 Other: Voiding Method Toilet Toilet Toilet # Voids 3 2 1 - Labs CBC & Chem 7: 06/28/24 06:59 06/29/24 06:02
[2024-07-02 07:12] LABS: African American GFR (CKD) >90 (>60 ml/min/1.73 sqM); Anion Gap 7 mmol/L; Blood Urea Nitrogen 15 mg/dL (9-20); Calcium 9.3 mg/dL (8.4-10.2); Carbon Dioxide 29 mmol/L (22-30); Chloride 98 mmol/L (98-107); Glucose 89 mg/dL (74-99); Non-African American GFR(CKD) >90 (>60 ml/min/1.73 sqM); Potassium 3.8 mmol/L (3.5-5.1); Sodium 134 mmol/L (137-145)
--- NOTE | 2024-07-02 12:45 | P.PN ---
Subjective Progress Note Date: 07/02/24 Hospital Course: Patient is a poor historian. Majority of information obtained from chart review. 73 year old M with PMH HTN presents to the ED for altered mental status. 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 Apparently he was fired from his job several months ago after showing up frequently at the wrong times. Apparently his 4 months ago which he is not aware of. He reports drinking 2 beers, 4 times a week for an unknown amount of time. He denies any active complaints. Reports feeling well. He denies any headache, lower extremity edema, nausea or vomiting, fever or chills, cough, chest pain, dizziness, shortness of breath, palpitations, changes in urination or bowel habits. In the ED he underwent extensive evaluation. BP 203/127, HR 97, T 98.7F, RR 18, 98% on RA. CBC, Coag panel, CMP significant for RBC 4.04, MCV 102.4, Na 135, Cl 97, Cr 0.57, AST 60. Trop 0.1, 0.102. UA neg LE or nitrite. UDS neg. CT brain neg acute process. CXR neg. EKG sinus arrhythmia, nonspecific ST T wave changes. 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 MRI brain showed no acute process. B12 266. Folate 6. TSH 2.86. Ammonia < 9. Neurology recommended B12 and Folate replacement. Cardiology consulted for elevated Troponin of 0.1, 0.102. Echo ordered showing EF 40-45%, moderate LVH, mild AR/MR/TR. Cardiology adjusted antihypertensive medications. Metoprolol switched to Coreg 6.25 mg p.o. twice daily, added amlod ipine 10 mg p.o. daily, hydrochlorothiazide 25 p.o. daily. PT OT reassessed the patient, support discharged home, social work following, plan to discharge to [facility] 07/03 AM Pertinent Imaging: No new imaging Subjective: Denied any complaints Pertinent positives and negatives as discussed above, a complete review of systems was performed and all other systems are negative. Vitals Signs Reviewed. General: [nontoxic], [no distress], [appears at stated age] Derm: [warm], [dry] Head: [atraumatic], [normocephalic], [symmetric] Eyes: [EOMI], [no lid lag], [anicteric sclera] Mouth: [no lip lesion], [mucus membranes moist] Cardiovascular: [S1S2 reg], [no murmur] Lungs: [CTA bilateral], [no rhonchi, no rales] , [no accessory muscle use] Abdominal: [soft], [ nontender to palpation], [no guarding], [no appreciable organomegaly] Ext: [no gross muscle atrophy], [no edema], [no contractures] Neuro: [ CN II-XI grossly intact], [no focal neuro deficits] Psych: [Alert], [oriented to self, states that he is somewhere in [facility], did not remember who is the president of the [employer], did not remember the month, able to tell me the year. Data Reviewed Today: Pertinent Labs: Lab work showed stable sodium at 134, normal creatinine, bicarb, potassium Assessment and Plan: Altered mental status likely severe neurocognitive disorder Folate and B12 deficiency History of EtOH use -CT brain neg. UDS neg -MRI brain neg acute process -B12 266. Folate 6. TSH 2.86. Ammonia < 9 -Seizure and Fall precautions -Thiamine 100 mg PO QD. B12 1000 mcg PO QD. Folic acid 1 mg PO QD. -Neurology and Psychiatry on board. -stable for discharge, discussed with social work, pending placement Hypertensive urgency, possibly related to hypertensive urgency. Troponin elevation -Valsartan 160 mg PO BID. Metoprolol switched to Coreg 6.25 mg PO BID by Cardiology today. + Amlodipine 10 mg PO QD., cardiology added hydrochlorothiazide 25 daily -ACS ruled out. Echo as above. Possible outpatient ischemic workup. Telemetry monitoring. Cardiology on board. Alcohol abuse: CIWA protocol with Ativan PRN per protocol. DVT ppx: SCD Code status: No code Anticipated discharge place: [facility] Anticipated discharge time: Medically stable, pending placement Objective - Vital Signs Vital signs: Vital Signs Temp 97.6 F 07/02/24 11:32 Pulse 66 07/02/24 11:32 Resp 16 07/02/24 11:32 BP 133/60 07/02/24 11:32 Pulse Ox 98 07/02/24 11:32 FiO2 Intake & Output 07/01/24 07/02/24 07/02/24 18:59 06:59 18:59 Intake Total 926 10 240 Balance 926 10 240 Weight 60.4 kg Intake: IV 30 10 0.9 10 Invasive Line 1 20 Invasive Line 2 10 Oral 896 240 Other: Voiding Method Toilet Toilet Toilet # Voids 2 1 - Labs CBC & Chem 7: 06/28/24 06:59 07/02/24 06:23 Labs: Abnormal Lab Results - Last 24 Hours (Table) 07/02/24 Range/Units 06:23 Sodium 134 L (137-145) mmol/L Creatinine 0.56 L (0.66-1.25) mg/dL
--- NOTE | 2024-07-03 07:20 | P.PN ---
Subjective Progress Note Date: 07/03/24 The patient is a pleasant 73-year-old gentleman with a past medical history significant for history of gall use and possible underlying dementia as well as hypertension and hypertensive heart disease and recently diagnosis of cardiomyopathy with EF around 45 to 50% was admitted to the hospital with hypert ension emergency and the change in mental status and was found to have mildly abnormal cardiac enzymes treated medically July 01, 2024 The patient was seen and evaluated this morning. He is asymptomatic but the pressure remains elevated and consistent with stage II hypertension and sometimes crisis. He is bradycardic as well. He is on beta-chayo as well as valsartan been going to add hydrochlorothiazide to the current medical regimen. Kidney function is within normal limits. The physical examination is remarkable for regular rhythm with a soft systolic murmur at the right upper sternal border with diminished breathing sounds bilaterally and no edema was noted in the lower extremities July 02, 2024 The patient was seen and evaluated this morning with he is asymptomatic. The pressure appears to be under good control on the current medical regimen. The echo showed mild cardiomyopathy with global hypokinesia and no regional wall motion abnormalities. Severe CAD to be ruled out probably as an outpatient. The physical examination is remarkable for regular rhythm with a soft systolic murmur and clear breathing sounds bilaterally and no edema was noted in the lower extremities July 03, 2024 The patient was seen and evaluated this morning and he is asymptomatic and the pressure has been under good control on the current medical regimen. The physical examination appears to be overall unremarkable besides soft systolic murmur. From a cardiovascular standpoint of view, the patient can be discharged home Assessment Hypertension emergency Change in mental status Evidence of myocardial injury with no evidence of ischemia Abnormal EKG with evidence of hypertensive heart disease Mild cardiomyopathy likely secondary to hypertensive heart disease Multiple comorbid conditions including alcohol use Plan Continue the current medical regimen The patient can be discharged home Objective - Vital Signs Vital signs: Vital Signs Temp 97.7 F 07/03/24 03:34 Pulse 71 07/03/24 03:34 Resp 17 07/03/24 03:34 BP 135/76 07/03/24 03:34 Pulse Ox 96 07/03/24 03:34 FiO2 Intake & Output 07/02/24 07/03/24 07/03/24 18:59 06:59 18:59 Intake Total 660 Balance 660 Weight 60.6 kg Intake: Oral 660 Other: Voiding Method Toilet Toilet # Voids 2 - Labs CBC & Chem 7: 06/28/24 06:59 07/02/24 06:23
--- NOTE | 2024-07-03 07:37 | P.DS ---
Providers Date of admission: 06/30/24 07:18 Attending physician: Johan Nice Consults: 06/27/24 11:51 Consult Physician Routine Consulting Provider: Psychiatry - [facility] Psychiatry Consult Reason/Comments: psychiatric eval Do you want consulting provider notified?: Yes 06/27/24 11:52 Consult Physician Routine Consulting Provider: Fransisco Posada Consult Reason/Comments: ams Do you want consulting provider notified?: Yes Consult Physician Urgent Consulting Provider: Sami Dickson Consult Reason/Comments: ams, elevated trop Do you want consulting provider notified?: Yes Primary care physician: Romeo [facility] Course: Discharge Diagnosis: Altered mental status likely severe neurocognitive disorder Folate and B12 deficiency History of EtOH use Hypertensive urgency: Resolved Troponin elevation Alcohol abuse Hospital Course: Patient is a poor historian. Majority of information obtained from chart review. 73 year old M with PMH HTN presents to the ED for altered mental status. 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 Apparently he was fired from his job several months ago after showing up frequently at the wrong times. Apparently his 4 months ago which he is not aware of. He reports drinking 2 beers, 4 times a week for an unknown amount of time. He denies any active complaints. Reports feeling well. He denies any headache, lower extremity edema, nausea or vomiting, fever or chills, cough, chest pain, dizziness, shortness of breath, palpitations, changes in urination or bowel habits. In the ED he underwent extensive evaluation. BP 203/127, HR 97, T 98.7F, RR 18, 98% on RA. CBC, Coag panel, CMP significant for RBC 4.04, MCV 102.4, Na 135, Cl 97, Cr 0.57, AST 60. Trop 0.1, 0.102. UA neg LE or nitrite. UDS neg. CT brain neg acute process. CXR neg. EKG sinus arrhythmia, nonspecific ST T wave changes. 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 MRI brain showed no acute process. B12 266. Folate 6. TSH 2.86. Ammonia < 9. Neurology recommended B12 and Folate replacement. Cardiology consulted for elevated Troponin of 0.1, 0.102. Echo ordered showing EF 40-45%, moderate LVH, mild AR/MR/TR. Cardiology adjusted antihypertensive medications. Metoprolol switched to Coreg 6.25 mg p.o. twice daily, added amlodipine 10 mg p.o. daily, hydrochlorothiazide 25 p.o. daily. PT OT reassessed the patient, support discharged home, social work following, plan to discharge to [facility] 3 AM Patient seen and examined at bedside.[] Vital signs reviewed and stable. General: [nontoxic], [no distress], [appears at stated age] Derm: [warm], [dry] Head: [atraumatic], [normocephalic], [symmetric] Eyes: [EOMI], [no lid lag], [anicteric sclera] Mouth: [no lip lesion], [mucus membranes moist] Cardiovascular: [S1S2 reg], [no murmur] Lungs: [CTA bilateral], [no rhonchi, no rales] , [no accessory muscle use] Abdominal: [soft], [ nontender to palpation], [no guarding], [no appreciable organomegaly] Ext: [no gross muscle atrophy], [no edema], [no contractures] Neuro: [ CN II-XI grossly intact], [no focal neuro deficits] Psych: [Alert], [oriented to self, states that he is somewhere in [facility], did not remember who is the president of the [employer], did not remember the month, able to tell me the year. A total of 40 minutes of time were spent preparing this complex discharge summary. Patient was discharged on 07/03/2024. Plan - Discharge Summary Discharge Rx Participant: Yes New Discharge Prescriptions: New Donepezil [Aricept] 5 mg PO HS #30 tab busPIRone HCl [Buspar] 5 mg PO TID PRN #90 tab PRN Reason: Anxiety carvediloL [Coreg] 6.25 mg PO BID-W/MEALS #60 tab Valsartan [Diovan] 160 mg PO BID #60 tab Melatonin 3 mg PO HS #30 tab Cyanocobalamin [Vitamin B-12] 1,000 mcg PO DAILY #60 tab Aspirin 81 mg PO DAILY #30 tab Folic Acid 1 mg PO DAILY #30 tab hydroCHLOROthiazide [Hydrodiuril] 25 mg PO DAILY #30 tab Atorvastatin [Lipitor] 40 mg PO HS #30 tab amLODIPine [Norvasc] 10 mg PO DAILY #30 tab Thiamine [Vitamin B-1] 100 mg PO DAILY #30 tab Continue Cholecalciferol [Vitamin D3 (25 Mcg = 1000 Iu)] 50 mcg PO BID Ascorbic Acid [Vitamin C] 500 mg PO DAILY Discontinued Metoprolol Succinate (ER) [Toprol Xl] 100 mg PO DAILY Losartan [Cozaar] 50 mg PO BID Discharge Medication List Ascorbic Acid [Vitamin C] 500 mg PO DAILY 05/29/24 [History] Cholecalciferol [Vitamin D3 (25 Mcg = 1000 Iu)] 50 mcg PO BID 05/29/24 [History] Aspirin 81 mg PO DAILY #30 tab 07/02/24 [Rx] Atorvastatin [Lipitor] 40 mg PO HS #30 tab 07/02/24 [Rx] Cyanocobalamin [Vitamin B-12] 1,000 mcg PO DAILY #60 tab 07/02/24 [Rx] Donepezil [Aricept] 5 mg PO HS #30 tab 07/02/24 [Rx] Folic Acid 1 mg PO DAILY #30 tab 07/02/24 [Rx] Melatonin 3 mg PO HS #30 tab 07/02/24 [Rx] Thiamine [Vitamin B-1] 100 mg PO DAILY #30 tab 07/02/24 [Rx] Valsartan [Diovan] 160 mg PO BID #60 tab 07/02/24 [Rx] amLODIPine [Norvasc] 10 mg PO DAILY #30 tab 07/02/24 [Rx] busPIRone HCl [Buspar] 5 mg PO TID PRN #90 tab 07/02/24 [Rx] carvediloL [Coreg] 6.25 mg PO BID-W/MEALS #60 tab 07/02/24 [Rx] hydroCHLOROthiazide [Hydrodiuril] 25 mg PO DAILY #30 tab 07/02/24 [Rx] Follow up Appointment(s)/Referral(s): Romeo Maldonado DO [Primary Care Provider] - 1-2 days Activity/Diet/Wound Care/Special Instructions: Daniel Gomez [facility] [address] [place] [address] Discharge Disposition: HOME SELF-CARE
[2024-07-03 07:51] VITALS: PULSE 58
[2024-07-03 11:07] VITALS: BP 146/69; RESP 16; TEMP 97.8
== END 2024-07-03 12:11 | disposition home or self-care (01) | DRG 305 ==
LOC: EC 08:32 → 3SCARD 11:53 → OBSVTOIN 06-30 07:18 → EEVIPCON 06-30 07:18
PROVIDERS: ADMIT Student in an Organized Health Care Education/Training Program; ATTEND Student in an Organized Health Care Education/Training Program
PROC: HZ2ZZZZ Detoxification Services for Substance Abuse Treatment (ICD-10-PCS; principal; 2024-06-30)
DX: I16.1 Hypertensive emergency (principal); I5A Non-ischemic myocardial injury (non-traumatic); F03.90 Unspecified dementia, unspecified severity, without behavioral disturbance, psychotic disturbance, mood disturbance, and anxiety; F10.20 Alcohol dependence, uncomplicated; I10 Essential (primary) hypertension; I42.9 Cardiomyopathy, unspecified; E53.8 Deficiency of other specified B group vitamins; D75.89 Other specified diseases of blood and blood-forming organs; Z79.899 Other long term (current) drug therapy; E87.6 Hypokalemia; Z88.8 Allergy status to other drugs, medicaments and biological substances
CPT/HCPCS: 36415; 70450; 70551; 71046; 80048; 80053; 80061; 80306; 81001; 82140; 82607; 82746; 83036; 83735; 84443; 84484; 85025; 85610; 85730; 93005; 93306; 94760; 96374; 99285